=== PATIENT | female | born 1960 | race Caucasian/White ===

== ENCOUNTER → 2016-09-24 | Outpatient (CLI) | payer BC ==
[~2016-09-24] MED LIST: META1TAB22; OXYC-57
[2016-09-24 17:47] LABS: URINE APPEARANCE CLEAR (CLEAR); URINE BILIRUBIN NEG (NEG); URINE COLOR YELLOW; URINE EPITHELIAL CELL AUTO 0-5 /lpf (0-5); URINE NITRITE NEG (NEG); UROBILINOGEN NEG (NEG)
[2016-09-24 17:52] LABS: MANUAL MICROSCOPIC REQUIRED? NO; REVIEW REQ? NO
--- NOTE | 2016-09-24 17:59 | DIAGNOSTIC IMAGING REPORT ---
LEFT HAND MIN 3 VIEWS ROUTINE, RIGHT HAND MIN 3 VIEWS ROUTINE CLINICAL HISTORY: Bilateral hand pain. COMPARISON STUDY: None. FINDINGS: No fracture or dislocation within the right or left hand. Soft tissues are unremarkable. There is diffuse osteopenia. Mild cartilage space narrowing within the DIP joints, STT joint, first carpometacarpal joints, first MCP joints, and the interphalangeal joints within the thumbs. This is consistent with mild osteoarthritis. No erosions identified. IMPRESSION: 1. Mild osteoarthritis within the bilateral hands and wrists. 2. Diffuse osteopenia. This can be confirmed with follow-up DEXA scan. Electronically signed by: Jared Oliva M.D. 09/24/2016 5:57 PM Dictated Date/Time: 09/24/2016 5:54 PM
[2016-09-24 18:11] LABS: RHEUMATOID FACTOR < 10.0 U/mL (0-15); TOTAL IRON BINDING CAPACITY 401 mcg/dl (250-450)
[2016-10-02 02:35] LABS: ANTI-CENTROMERE AB <1.0 NEG AI (<1.0 NEG); ANTI-SS-A <1.0 NEG AI (<1.0 NEG); ANTI-SS-B <1.0 NEG AI (<1.0 NEG); DNA ds CRITHIDIA NEGATIVE (NEGATIVE); MYELOPEROXIDASE AB <1.0 AI (<1.0); Sm Antibody <1.0 NEG AI (<1.0 NEG); TRYPTASE**TC 34484X 17 ng/mL (<11)
[2016-10-02 14:08] LABS: CYCLIC CITRULLINATED PEPT IGG <16 Units
== END | disposition home or self-care (01) ==
LOC: C.RAD1850 16:34
PROVIDERS: ATTEND Internal Medicine Rheumatology
DX: L50.9 Urticaria, unspecified (principal); L94.4 Gottron's papules; M25.50 Pain in unspecified joint; R70.0 Elevated erythrocyte sedimentation rate; R76.8 Other specified abnormal immunological findings in serum; M85.849 Other specified disorders of bone density and structure, unspecified hand

== ENCOUNTER → 2016-11-21 | Outpatient (CLI) | payer BC ==
[2016-11-21 10:43] LABS: BASO % 0.1 %; BASO ABS # 0.02 K/uL (0-0.2); COMPLETE YES; EOS % 0.2 %; HEMATOCRIT 39.2 % (37-47); IG% 0.2 %; LYMPH % 15.5 %; LYMPH ABS # 2.72 K/uL (1.2-3.4); MEAN CELL VOLUME 85.6 fL (80-100); MEAN CORPUSCULAR HEMOGLOBIN 26.9 pg (25-34); MEAN CORPUSCULAR HGB CONC 31.4 g/dl (32-36); MEAN PLATELET VOLUME 9.4 fL (7.4-10.4); MONO % 4.7 %; NEUT % 79.3 %; PLATELET COUNT 254 K/uL (130-400); RED BLOOD COUNT 4.58 M/uL (4.2-5.4); WHITE BLOOD COUNT 17.59 K/uL (4.8-10.8)
[2016-11-21 11:33] LABS: ALB/GLOB RATIO 0.9 (0.9-2); ALT/SGPT 21 U/L (12-78); AST/SGOT 15 U/L (15-37); BLOOD UREA NITROGEN 18 mg/dl (7-18); BUN/CREATININE RATIO 24.5 (10-20); CALCIUM 8.8 mg/dl (8.5-10.1); CARBON DIOXIDE 30 mmol/L (21-32); CHLORIDE 105 mmol/L (98-107); CREATININE 0.75 mg/dl (0.60-1.20); GLUCOSE 96 mg/dl (70-99); POTASSIUM 3.6 mmol/L (3.5-5.1); SODIUM 142 mmol/L (136-145)
[2016-11-21 11:39] LABS: ALKALINE PHOSPHATASE 87 U/L (45-117)
[2016-11-25 08:50] LABS: HEPATITIS C VIRAL RNA BY PCR <15 NOT DETECTED IU/ML (<15); HEPATITIS C VIRAL RNA(LOG) PCR <1.18 NOT DETECTED LOG IU/ML (<1.18)
[2016-11-26 23:03] LABS: C1 ESTERASE INHIB FUNC >100 % (>=68); C1 ESTERASE INHIB TC298 36 mg/dL (21-39); IGE RECEPTOR AB(ANTI-IgE IgG)* 26 ng/mL (<168)
== END ==
LOC: C.LAB1850 09:45
PROVIDERS: ATTEND Dermatology
DX: R76.8 Other specified abnormal immunological findings in serum (principal); R74.8 Abnormal levels of other serum enzymes; L50.1 Idiopathic urticaria

== ENCOUNTER → 2016-11-26 | Outpatient (CLI) | payer BC ==
[~2016-11-26] MED LIST changes: +OPTIRAY 320 IV PRN
--- NOTE | 2016-11-26 12:34 | DIAGNOSTIC IMAGING REPORT ---
ABDOMEN AND PELVIS CT WITH IV AND ORAL CONTRAST CT DOSE: 753.06 mGy.cm HISTORY: R76.8 HARPER [id number] PR3 ANCA antibodies [id number] Chronic TECHNIQUE: Multiaxial CT images of the abdomen and pelvis were performed following the use of intravenous and oral contrast. COMPARISON STUDY: None. FINDINGS: Lung bases are clear. Liver enhances uniformly. Gallbladder is negative for distention. The adrenal glands and spleen are unremarkable. Kidneys enhance uniformly. There are several shotty para-aortic and retroperitoneal nodes. Para-aortic nodes measure to 6.5 mm. Bulky adenopathy is not appreciated. The bowel pattern is considered nonobstructive. Several pelvic sidewall nodes are present measuring to 1.3 cm on the right and 1.3 cm on the left. Bladder is midline. There are no contained calcifications. The middle region show several small nodes measuring no more than 5 mm. IMPRESSION: 1. Several small shotty nodes of the para-aortic and pelvic sidewall regions. 2. Evaluation of the abdomen and pelvis is otherwise negative. Electronically signed by: Josias Sharma M.D. 11/26/2016 12:33 PM Dictated Date/Time: 11/26/2016 12:29 PM
== END | disposition home or self-care (01) ==
LOC: C.CTS 12:02
PROVIDERS: ATTEND Internal Medicine Pulmonary Disease
DX: L50.1 Idiopathic urticaria (principal); R76.8 Other specified abnormal immunological findings in serum

== ENCOUNTER → 2016-12-26 | Outpatient (CLI) | payer BC ==
[~2016-12-26] MED LIST changes: -OPTIRAY 320 IV PRN
[2016-12-26 14:35] LABS: BASO % 0.2 %; BASO ABS # 0.02 K/uL (0-0.2); COMPLETE YES; EOS % 0.8 %; IG% 0.4 %; LYMPH % 22.8 %; LYMPH ABS # 2.15 K/uL (1.2-3.4); MEAN CELL VOLUME 83.7 fL (80-100); MEAN CORPUSCULAR HEMOGLOBIN 25.5 pg (25-34); MEAN CORPUSCULAR HGB CONC 30.5 g/dl (32-36); MEAN PLATELET VOLUME 9.6 fL (7.4-10.4); MONO % 3.3 %; NEUT % 72.5 %; PLATELET COUNT 258 K/uL (130-400); RED BLOOD COUNT 4.66 M/uL (4.2-5.4); WHITE BLOOD COUNT 9.45 K/uL (4.8-10.8)
[2016-12-26 14:50] LABS: ALT/SGPT 23 U/L (12-78); AST/SGOT 11 U/L (15-37); CREATININE 0.64 mg/dl (0.60-1.20)
== END | disposition home or self-care (01) ==
LOC: C.LAB1850 12:20
PROVIDERS: ATTEND Internal Medicine Rheumatology
DX: R76.8 Other specified abnormal immunological findings in serum (principal); L50.1 Idiopathic urticaria

== ENCOUNTER → 2017-04-23 | Outpatient (CLI) | payer BC ==
[2017-04-23 16:40] LABS: BASO % 0.1 %; BASO ABS # 0.01 K/uL (0-0.2); COMPLETE YES; EOS % 0.2 %; IG% 0.3 %; LYMPH ABS # 2.68 K/uL (1.2-3.4); MEAN CELL VOLUME 83.9 fL (80-100); MEAN CORPUSCULAR HEMOGLOBIN 24.9 pg (25-34); MEAN CORPUSCULAR HGB CONC 29.7 g/dl (32-36); MEAN PLATELET VOLUME 9.4 fL (7.4-10.4); MONO % 4.7 %; NEUT % 73.7 %; PLATELET COUNT 229 K/uL (130-400); RED BLOOD COUNT 4.53 M/uL (4.2-5.4); WHITE BLOOD COUNT 12.76 K/uL (4.8-10.8)
[2017-04-23 16:59] LABS: ALT/SGPT 24 U/L (12-78); AST/SGOT 10 U/L (15-37); CREATININE 0.72 mg/dl (0.60-1.20)
[2017-04-23 17:02] LABS: ALKALINE PHOSPHATASE 74 U/L (45-117)
== END | disposition home or self-care (01) ==
LOC: C.LAB1850 15:40
PROVIDERS: ATTEND Internal Medicine Rheumatology
DX: R76.8 Other specified abnormal immunological findings in serum (principal); M31.8 Other specified necrotizing vasculopathies

== ENCOUNTER → 2017-08-08 | Outpatient (CLI) | payer BC ==
[2017-08-08 17:41] LABS: BASO % 0.1 %; BASO ABS # 0.01 K/uL (0-0.2); EOS % 0.2 %; EOS ABS # 0.02 K/uL (0-0.5); HEMATOCRIT 35.6 % (37-47); HEMOGLOBIN 10.8 g/dL (12.0-16.0); IG# 0.03 K/uL (0.00-0.02); LYMPH % 15.7 %; LYMPH ABS # 1.74 K/uL (1.2-3.4); MEAN CELL VOLUME 86.2 fL (80-100); MEAN CORPUSCULAR HEMOGLOBIN 26.2 pg (25-34); MEAN CORPUSCULAR HGB CONC 30.3 g/dl (32-36); MEAN PLATELET VOLUME 9.7 fL (7.4-10.4); MONO % 3.2 %; MONO ABS # 0.36 K/uL (0.11-0.59); NEUT % 80.5 %; NEUT ABS # 8.93 K/uL (1.4-6.5); PLATELET COUNT 212 K/uL (130-400); RED CELL DISTRIBUTION WIDTH CV 18.8 % (11.5-14.5); WHITE BLOOD COUNT 11.09 K/uL (4.8-10.8)
[2017-08-08 17:59] LABS: ALBUMIN 3.2 gm/dl (3.4-5.0); ALT/SGPT 33 U/L (12-78); AST/SGOT 25 U/L (15-37); CREATININE 0.71 mg/dl (0.60-1.20)
[2017-08-08 18:02] LABS: ALKALINE PHOSPHATASE 91 U/L (45-117); TOTAL PROTEIN 6.8 gm/dl (6.4-8.2)
== END | disposition home or self-care (01) ==
LOC: C.LABMFLN 12:01
PROVIDERS: ATTEND Internal Medicine Rheumatology
DX: Z79.899 Other long term (current) drug therapy (principal)

== ENCOUNTER → 2017-09-11 | Outpatient (CLI) | payer BC ==
[2017-09-11 17:55] LABS: BASO % 0.1 %; BASO ABS # 0.01 K/uL (0-0.2); EOS % 0.2 %; EOS ABS # 0.02 K/uL (0-0.5); HEMATOCRIT 37.2 % (37-47); HEMOGLOBIN 11.4 g/dL (12.0-16.0); IG# 0.02 K/uL (0.00-0.02); LYMPH % 13.8 %; LYMPH ABS # 1.56 K/uL (1.2-3.4); MEAN CELL VOLUME 87.7 fL (80-100); MEAN CORPUSCULAR HEMOGLOBIN 26.9 pg (25-34); MEAN CORPUSCULAR HGB CONC 30.6 g/dl (32-36); MEAN PLATELET VOLUME 9.9 fL (7.4-10.4); MONO % 2.3 %; MONO ABS # 0.26 K/uL (0.11-0.59); NEUT % 83.4 %; NEUT ABS # 9.44 K/uL (1.4-6.5); PLATELET COUNT 242 K/uL (130-400); RED CELL DISTRIBUTION WIDTH CV 18.2 % (11.5-14.5); RED CELL DISTRIBUTION WIDTH SD 58.9 fL (36.4-46.3); WHITE BLOOD COUNT 11.31 K/uL (4.8-10.8)
[2017-09-11 18:10] LABS: ALBUMIN 3.5 gm/dl (3.4-5.0); ALT/SGPT 24 U/L (12-78); CREATININE 0.69 mg/dl (0.60-1.20)
[2017-09-11 18:13] LABS: ALKALINE PHOSPHATASE 96 U/L (45-117); AST/SGOT 17 U/L (15-37); TOTAL PROTEIN 6.9 gm/dl (6.4-8.2)
== END | disposition home or self-care (01) ==
LOC: C.LABMFLN 13:28
PROVIDERS: ATTEND Internal Medicine Rheumatology
DX: L50.1 Idiopathic urticaria (principal); Z79.52 Long term (current) use of systemic steroids; Z79.899 Other long term (current) drug therapy

== ENCOUNTER → 2018-01-06 | Outpatient (CLI) | payer BC | END | disposition home or self-care (01) | LOC: C.PAPS 08:46 | PROVIDERS: ATTEND Family Medicine | DX: Z01.419 Encounter for gynecological examination (general) (routine) without abnormal findings (principal) ==

== ENCOUNTER → 2018-01-06 | Outpatient (CLI) | payer BC ==
[2018-01-06 17:59] LABS: BASO % 0.2 %; BASO ABS # 0.02 K/uL (0-0.2); EOS % 0.1 %; EOS ABS # 0.01 K/uL (0-0.5); HEMATOCRIT 35.8 % (37-47); HEMOGLOBIN 11.3 g/dL (12.0-16.0); IG# 0.02 K/uL (0.00-0.02); LYMPH % 16.5 %; LYMPH ABS # 1.35 K/uL (1.2-3.4); MEAN CELL VOLUME 96.2 fL (80-100); MEAN CORPUSCULAR HEMOGLOBIN 30.4 pg (25-34); MEAN CORPUSCULAR HGB CONC 31.6 g/dl (32-36); MEAN PLATELET VOLUME 9.7 fL (7.4-10.4); MONO % 3.4 %; MONO ABS # 0.28 K/uL (0.11-0.59); NEUT % 79.6 %; NEUT ABS # 6.48 K/uL (1.4-6.5); PLATELET COUNT 249 K/uL (130-400); RED CELL DISTRIBUTION WIDTH CV 19.7 % (11.5-14.5); RED CELL DISTRIBUTION WIDTH SD 69.4 fL (36.4-46.3); WHITE BLOOD COUNT 8.16 K/uL (4.8-10.8)
[2018-01-06 18:13] LABS: ALBUMIN 3.3 gm/dl (3.4-5.0); BLOOD UREA NITROGEN 11 mg/dl (7-18); CALCIUM 9.1 mg/dl (8.5-10.1); CARBON DIOXIDE 27 mmol/L (21-32); CREATININE 0.66 mg/dl (0.60-1.20); GLUCOSE 115 mg/dl (70-99); POTASSIUM 4.2 mmol/L (3.5-5.1); SODIUM 140 mmol/L (136-145); TRANSFERRIN 284 mg/dl (200-360)
== END | disposition home or self-care (01) ==
LOC: C.LABMFLN 14:07
PROVIDERS: ATTEND Family Medicine
DX: Z98.84 Bariatric surgery status (principal); E55.9 Vitamin D deficiency, unspecified

== ENCOUNTER 2025-02-07 15:06 | Inpatient (IN) ==
[2025-02-07 16:10] LABS: Hematocrit (blood only) 39.2 % (37.0-47.0); Hemoglobin 12.0 g/dl (12.0-16.0); Immature Granulocytes # (auto) 0.05 K/uL (0.01-0.20); Immature Granulocytes % (auto) 0.4 %; Mean Corpuscular Hemoglobin 29.5 pg (25.0-34.0); Mean Corpuscular Volume 96.3 fL (80.0-100.0); Platelet Count 197 K/uL (130-400); RDW Standard Deviation 57.4 fL (36.4-46.3); Red Blood Count 4.07 M/uL (4.20-5.40); White Blood Count 13.04 K/ul (4.8-10.8)
[2025-02-07 16:26] LABS: Alanine Aminotransferase 15 U/L (7-52); Albumin Globulin Ratio 1.3 (0.9-2); Alkaline Phosphatase 80 U/L (34-104); Anion Gap 7 (3-11); Bilirubin,Total 0.7 mg/dl (0.2-1.0); Blood Urea Nitrogen 18 mg/dl (6-23); Calcium 9.5 mg/dl (8.6-10.3); Carbon Dioxide 27 mmol/L (21-32); Chloride 104 mmol/L (98-107); Globulin 3.0 gm/dl (2.5-4.0); Glucose 209 mg/dl (70-99(Fasting)); Potassium 4.2 mmol/L (3.5-5.1); Sodium 138 mmol/L (136-145); Total Protein 6.9 gm/dl (6.0-8.3)
[2025-02-07 16:44] LABS: INR 0.9 (0.9-1.1); Partial Thromboplastin Time 23 Seconds (21-31); Prothrombin Time 10.0 Seconds (9.0-12.0)
--- NOTE | 2025-02-07 17:25 | Emergency Department Note ---
ED Provider Note History of Present Illness Chief Complaint: Neck Injury/Pain Stated Complaint: NECK AND BACK PAIN, NO FEELING IN R ARM STARTING L Time Seen by Provider: 02/07/25 16:40 64-year-old female who presents the emergency department with her with multiple complaints. The patient reports a history of lupus that was diagnosed 10 years ago. She has also had 3 prior neck surgeries performed by Dr. Erickson. The patient reports that she has had progressively worsening pain in her neck and back, as well as tingling, numbness and weakness in bilateral upper extremities, left worse than right. The patient reports that she recently had an MRI, and was seen by Dr. Erickson's physician nurses assistant. The patient believes that she is scheduled for surgery in approximately 3 weeks, but is uncertain of the date. The patient denies any other recent injuries to her head or neck. The patient denies any profound weakness of the lower extremities, bladder/bowel incontinence, chest pain, shortness of breath or fevers. The patient reports that she is currently on chronic steroids for her lupus. The patient reports that her pain is manageable, currently rating her discomfort a 4 out of 10. Home Medications Medication Instructions Recorded Confirmed Type cetirizine 10 mg tablet 10 mg PO QAM 12/06/19 02/01/25 History fluticasone propionate 50 2 sprays intranasal HS 12/06/19 02/01/25 History mcg/actuation nasal spray,suspension multivitamin 1 tab PO QPM 12/06/19 02/01/25 History epinephrine 0.3 mg/0.3 mL 0.3 mg (0.3 mL) IM Q10M PRN 11/05/22 02/01/25 Rx injection, auto-injector (EpiPen anaphylaxis #2 ea 2-Brandon) albuterol sulfate 90 mcg/actuation 2 puff inhalation Q6H PRN 06/23/23 02/01/25 Rx aerosol inhaler shortness of breath or wheezing #18 grams CPAP Machine #1 ea 11/07/23 11/04/24 Rx CPAP Supplies #1 ea 11/07/23 11/04/24 Rx furosemide 20 mg tablet (Lasix) 20 mg PO DAILY PRN leg swelling 01/06/24 02/01/25 History fluticasone furoate 100 1 inh inhalation QAM #60 ea 01/19/24 02/01/25 Rx mcg-vilanterol 25 mcg/dose inhalation powder (Breo Ellipta) syringe with needle 3 mL 25 x 5/8" #100 ea 01/19/24 11/04/24 Rx (BD Luer-Vee Syringe) azelastine 137 mcg (0.1 %) nasal 2 spray intranasal BID PRN 04/21/24 02/01/25 Rx spray Congestion #30 mL montelukast 10 mg tablet See Rx Instructions .Route 05/04/24 02/01/25 Rx .COMPLEX #90 tabs methocarbamol 500 mg tablet 500 mg PO QID PRN cervical disc 05/18/24 02/01/25 Rx disease #120 tabs prednisone 10 mg tablet See Rx Instructions .Route 10/18/24 02/01/25 Rx .COMPLEX #60 tabs dapsone 100 mg tablet See Rx Instructions .Route 10/22/24 02/01/25 Rx .COMPLEX #90 tabs gabapentin 100 mg capsule 100 mg PO .COMPLEX #90 caps 11/04/24 02/01/25 Rx iron infusion 1 dose IV UD 11/04/24 02/01/25 History cholecalciferol (vitamin D3) 25 100 mcg PO QAM 11/12/24 02/01/25 History mcg/drop (1,000 unit/drop) oral drops famotidine 40 mg tablet 40 mg PO QAM #90 tabs 11/15/24 02/01/25 Rx cyanocobalamin (vitamin B-12) 1,000 mcg IM MONTHLY #1 mL 01/21/25 02/01/25 Rx 1,000 mcg/mL injection solution levothyroxine 25 mcg tablet 25 mcg PO QAM 02/01/25 02/01/25 History (Synthroid) clonazepam 0.5 mg tablet 0.5 mg PO TID #90 tabs 02/07/25 Rx hydrocodone 10 mg-acetaminophen 1 tab PO Q6H #120 tabs 02/07/25 Rx 325 mg tablet Allergies Allergy/AdvReac Type Severity Reaction Status Date / Time cefaclor Allergy Severe Dyspnea, Verified 02/01/25 12:31 redness cephalexin [From Keflex] Allergy Intermediate Pruritus, Verified 02/01/25 12:31 redness Cephalosporins Allergy Intermediate Pruritus Verified 02/01/25 12:31 (Keflex), Dyspnea (Cefaclor) latex Allergy Intermediate Contact Verified 02/07/25 10:15 dermatitis metoclopramide Allergy Intermediate Tachycardia Verified 02/01/25 12:31 nickel Allergy Contact Verified 02/07/25 10:15 dermatitis pravastatin AdvReac Intermediate Unverified 02/01/25 12:31 Past Med/Surg History Problem List (Updated 02/07/25 @ 19:44 by Rajeev Parks) Lupus (systemic lupus erythematosus) (Acute) Osteoporosis Cervical cord compression with myelopathy (Acute) Post-menopause Cervical radiculopathy Iron deficiency Vitamin B12 deficiency Duodenal ulcer Hiatal hernia Repaired with gastric bypass Depression 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) Left breast mass (Chronic) "benign" biopsy Intussusception, acquired (Chronic) hx of Chronic lower back pain (Chronic) Cervical disc disease (Chronic) Axillary adenopathy (Chronic) Arthritis (Chronic) Anxiety (Chronic) Anemia (Chronic) Allergic rhinitis (Chronic) HARPER positive (Chronic) Medical History Chronic sinusitis Tobacco abuse Pt states was told that she needs to stop smoking prior to surgery so she has been trying to cut back but still occasional cigarette Obesity s/p gastric bypass surgery Mast cell activation syndrome Anxiety and depression Cervical disc disease Multiple previous c-spine surgeries; currently c/o severe radicular sx; states R hand completely numb, RUE with significant numbness/tingling, LUE and B/L LE affected also Anemia Iron deficiency- occasionally receives iron infusions B12 deficiency- receives monthy injections Sleep apnea Has not been using CPAP since having teeth pulled 10/2024 History of COVID-19 2020 + 2021 (home test)- mild symptoms > resolved, no current symptoms Asthma with COPD GERD (gastroesophageal reflux disease) Hx Lupus (systemic lupus erythematosus) Dx ~[address] Guadalupe "Affects joints"; takes prednisone daily Chronic idiopathic urticaria Surgical History History of postoperative nausea and vomiting Status post blepharoplasty of both eyes Per records Hx of bilateral cataract extraction Hx of cardiac catheterization 12/2022 (family hx CAD + coronary calcifications on CT chest), [facility]- no stents, mild non-obstructive disease Epidermal cyst In office procedure (08/2022) Skin, right back cyst, excision- Epidermoid cyst History of colonoscopy History of esophagogastroduodenoscopy (EGD) History of endoscopic sinus surgery [facility], Dr. Arellano Nausea and vomiting after administration of anesthetic agent History of tubal ligation History of tonsillectomy and adenoidectomy History of sinus surgery History of shoulder surgery Left x2 History of neck surgery x3 (including fusion) History of mastoidectomy Left H/O arthroscopic knee surgery History of gastric bypass 2000 with repair of hiatal hernia History of cholecystectomy History of ankle surgery S/P LETHA (total abdominal hysterectomy) Family History Sister Anxiety Breast cancer Mother Diabetes Colorectal cancer Cancer Stroke Father Diabetes Hypertension Hearing loss Stroke Heart disease Other No family history of adverse response to anesthesia Denies family history of Ovarian cancer Prostate cancer Myocardial infarction Asthma Social History Smoking Status: Current some day smoker Tobacco Type: Cigarettes Age Started Using Tobacco: 16; packs per day: 0.5; Cigarettes Per Day: 1-10; Second Hand Exposure: No; Do You Dip or Chew Tobacco: No; Hx Alcohol Use: No Hx Substance Use: No Preferred Language: Luxembourgish Communication Ability: Effective Visual Impairment: Limited Hearing Ability: Normal Community Specialist Required: No Beliefs That Will Affect Care: None marital status: Current Living Situation: Spouse current occupational status: employed current occupation: "filing for " How many Children do You have: 2 Other Information That Helps Us Care for You: No Feels Safe at Home: Yes Safety Concerns: Feels Safe At This Time Childhood Exposure to Second-Hand Smoke: No Diet: regular during the past year weight has: increased > 10 lbs Dental Care, Regularly: Yes Physical Activity Frequency: 1-2 Times per Week Physical Activity Frequency Comment: Exercised limited by physical condition Seatbelt Use: always Sunscreen Use: Yes Do you think of yourself as: straight/heterosexual Assistive Devices: None Physical Exam Vital Signs Vital Signs - 24 hr 02/07/25 15:10 02/07/25 16:31 02/07/25 16:53 Temperature 36.6 C Temperature Source Temporal Artery Scan Pulse Rate 72 55 L Pulse Rate [Right Finger] 60 Pulse Rate from SpO2 Sensor Pulse Rhythm [Right Finger] Regular Pulse Strength [Right Finger] Normal Respiratory Rate 20 20 Respiratory Effort / Characteristics Non-Labored Non-Labored Spontaneous Respiratory Depth Normal Normal Respiratory Pattern Regular Blood Pressure 153/75 H Blood Pressure [Right Arm] 197/78 H Blood Pressure Mean 101 Blood Pressure Mean [Right Arm] 117 Blood Pressure Position [Right Arm] Sitting Pulse Oximetry 92 94 Oxygen Delivery Method Room Air Room Air Oxygen Flow Rate Sepsis Recent Fever Within 48 Hours No Sepsis New/Unexplained Change in Mental Status No Sepsis Action Taken by Nursing No Action Required Oxygen Flow Rate - Titration Pulse Oximetry Post Tiitration 02/07/25 17:01 02/07/25 17:30 02/07/25 18:00 Temperature Temperature Source Pulse Rate 58 L 52 L 54 L Pulse Rate [Right Finger] Pulse Rate from SpO2 Sensor 52 L 54 L Pulse Rhythm [Right Finger] Pulse Strength [Right Finger] Respiratory Rate 16 17 18 Respiratory Effort / Characteristics Respiratory Depth Respiratory Pattern Blood Pressure 198/107 H 170/73 H 177/78 H Blood Pressure [Right Arm] Blood Pressure Mean 162 105 111 Blood Pressure Mean [Right Arm] Blood Pressure Position [Right Arm] Pulse Oximetry 91 93 91 Oxygen Delivery Method Oxygen Flow Rate Sepsis Recent Fever Within 48 Hours Sepsis New/Unexplained Change in Mental Status Sepsis Action Taken by Nursing Oxygen Flow Rate - Titration Pulse Oximetry Post Tiitration 02/07/25 18:03 02/07/25 18:30 02/07/25 18:48 Temperature Temperature Source Pulse Rate 53 L Pulse Rate [Right Finger] 52 L Pulse Rate from SpO2 Sensor 54 L Pulse Rhythm [Right Finger] Pulse Strength [Right Finger] Respiratory Rate 12 12 Respiratory Effort / Characteristics Respiratory Depth Respiratory Pattern Blood Pressure 161/83 H Blood Pressure [Right Arm] 161/83 H Blood Pressure Mean 109 Blood Pressure Mean [Right Arm] 109 Blood Pressure Position [Right Arm] Pulse Oximetry 85 L 94 94 Oxygen Delivery Method Nasal Cannula Oxygen Flow Rate 0 Sepsis Recent Fever Within 48 Hours Sepsis New/Unexplained Change in Mental Status Sepsis Action Taken by Nursing Oxygen Flow Rate - Titration 2 Pulse Oximetry Post Tiitration 93 CONSTITUTIONAL: Healthy and well nourished. Alert and oriented X 3. GCS 15. Patient does not appear in any acute distress. HEENT: Normocephalic, atraumatic. Pupils equal, round and reactive. NECK: Patient has limited range of motion of the neck. No obvious nuchal rigidity. LYMPHATICS: No cervical chain adenopathy. RESPIRATORY: Clear to auscultation bilaterally with no wheezing, crackles, rhonchi or stridor. CARDIOVASCULAR: Regular rate and rhythm with no murmurs, rubs or gallops. GASTROINTESTINAL: Bowel sounds present in all quadrants. MUSCULOSKELETAL: Patient has gear cutter strength of 3 out of 5 on the right, 4 out of 5 on the left. Patient has mild generalized tenderness to palpation of the lower lumbar region as well with negative straight leg raise bilaterally. Distal pulses are intact. INTEGUMENTARY: No rash or other significant dermatologic conditions noted. HEMATOLOGIC: No ecchymosis or petechiae. PSYCHIATRIC: Positive affect. NEUROLOGIC: Upper and lower extremities are sensory intact. Course Course Patient history and physical exam were performed. Nursing notes were reviewed. Vital signs reviewed and are normal. IV access was established, and labs were ordered and drawn. Review of labs does show a mild leukocytosis, with history of the same, likely secondary to chronic steroid use. Coagulation studies and CMP were otherwise grossly normal other than an elevated glucose of 209. Troponin was also normal. I did review the patient's outside MRI that was performed on 12/09/2024, performed at [facility]. MRI report shows progressive thecal sac stenosis at C3-4 level from posterior disc osteophyte complex with impingement on the cervical cord. There is development of T2 hyperintensity in the cord at this level which may reflect edema or gliosis. Postsurgical changes of an anterior fusion from C4-C7 is also noted. At this point, I did explain to the patient that her symptoms are likely secondary to worsening compression on her spinal cord. At this point, I did recommend reaching out to Dr. Erickson (although he was not on-call) to see if he had any other further recommendations given the patient's worsening state. Dr. Erickson did indicate that he would admit the patient for surgical admission, and will consult the hospitalist service for presurgical clearance. He did request that I repeat the MRI for presurgical planning. This was ordered and was pending at the time of chart dictation. I did add an additional chest x-ray and ECG for preoperative planning, showing a sinus bradycardia 53 bpm with incomplete right bundle branch block. Portable chest x-ray was also nonconcerning. Please see Dr. Erickson's dictation for further treatment and final disposition. Administered Medications Hydromorphone HCl (Hydromorphone Inj 0.5 Mg/0.5 Ml Syr) 0.5 mg IV Q3H PRN PRN Reason: MOD pain (scale 4-6) & Pre PT Stop: 02/21/25 21:33 Last Admin: 02/07/25 21:53 Dose: 0.5 mg Documented By: KAREN Discontinued Medications Dexamethasone Sodium Phosphate (DexamethasonePf 10 Mg/Ml Vial) 10 mg IV NOW ONE Stop: 02/07/25 17:28 Last Admin: 02/07/25 17:58 Dose: 10 mg Documented By: JUAN ALBERTO Medical Decision Making Medical Records Attestation: I reviewed the patient's medical records. Home Medications was personally reviewed by me Laboratory Data Attestation: I reviewed the patient's lab results. 02/07/25 15:55 02/07/25 15:55 Lab Results 02/07/25 Range/Units 15:55 WBC 13.04 H (4.8-10.8) K/ul RBC 4.07 L (4.20-5.40) M/uL Hgb 12.0 (12.0-16.0) g/dl Hct 39.2 (37.0-47.0) % MCV 96.3 (80.0-100.0) fL MCH 29.5 (25.0-34.0) pg MCHC 30.6 L (32.0-36.0) g/dL RDW Std Deviation 57.4 H (36.4-46.3) fL RDW Coeff of Ajay 16.2 H (11.5-14.5) % Plt Count 197 (130-400) K/uL MPV 10.1 (9.4-12.4) fL Immature Gran % (Auto) 0.4 % Neut % (Auto) 71.1 % Lymph % (Auto) 24.2 % Conway % (Auto) 4.0 % Eos % (Auto) 0.1 % Baso % (Auto) 0.2 % Neut # (Auto) 9.27 H (1.40-6.50) K/uL Lymph # (Auto) 3.16 (1.20-3.40) K/uL Conway # (Auto) 0.52 (0.11-0.59) K/uL Eos # (Auto) 0.01 (0.00-0.50) K/uL Baso # (Auto) 0.03 (0.00-0.20) K/uL Immature Gran # (Auto) 0.05 (0.01-0.20) K/uL PT 10.0 (9.0-12.0) Seconds INR 0.9 (0.9-1.1) APTT 23 (21-31) Seconds PTT Ratio 0.9 Sodium 138 (136-145) mmol/L Potassium 4.2 (3.5-5.1) mmol/L Chloride 104 (98-107) mmol/L Carbon Dioxide 27 (21-32) mmol/L Anion Gap 7 (3-11) BUN 18 (6-23) mg/dl Creatinine 0.64 (0.6-1.2) mg/dl Est Cr Clr Drug Dosing Not Reportable eGFR 98.62 BUN/Creatinine Ratio 28.1 H (10-20) Glucose 209 H (70-99(Fasting)) mg/dl Calcium 9.5 (8.6-10.3) mg/dl Total Bilirubin 0.7 (0.2-1.0) mg/dl AST 13 (13-39) U/L ALT 15 (7-52) U/L Alkaline Phosphatase 80 (34-104) U/L Troponin I High Sens 5.8 (0-14) pg/ml Total Protein 6.9 (6.0-8.3) gm/dl Albumin 3.9 (3.4-5.0) gm/dl Globulin 3.0 (2.5-4.0) gm/dl Albumin/Globulin Ratio 1.3 (0.9-2) Imaging Data Attestation: I personally reviewed and interpreted this imaging study as follows: My Impression: My interpretation of a portable chest x-ray does not show evidence for pulmonary edema, pneumothorax or pneumonia. Noncontrast MRI of the cervical spine was ordered at Dr. Erickson's request, and was not reviewed by me prior to chart documentation. Radiologist's Impression: Chest X-Ray 02/07/25 18:48 EXAM: X-ray chest one-view portable CLINICAL HISTORY: Pre-op PRIORS: None TECHNIQUE: AP upright chest FINDINGS: Surgical hardware at the cervical spine. The chest is well-expanded. Overlying soft tissues obscure the lung bases. No airspace consolidation, effusion or congestive changes. Heart size is top normal. No pneumothorax. Trachea is patent. Osseous structures demonstrate no acute abnormality. No radiopaque foreign body. IMPRESSION: No plain film evidence of an acute cardiopulmonary process. Electronically signed by Maxine Morris 02-07-2025 7:30 PM MDM Narrative See ED Course section for further details of today's visit. The patient presents with symptoms of progressively worsening pain, tingling and numbness of bilateral upper extremities, right worse than left, as well as lower extremity weakness as well. The patient has fallen several times recently. Patient does have an outpatient MRI showing notable compression on the cervical cord, likely explaining the patient's symptoms. The case was discussed with Dr. Erickson, spine surgeon, who indicated that the patient does warrant surgical management. Further review of the patient's workup today does not show any electrolyte abnormalities. Cardiopulmonary workup was also nonconcerning, both preoperatively as well as for etiology for her current symptoms. Please see Dr. Erickson's dictation for further treatment and final disposition. A noncontrast MRI of the cervical spine was ordered at Dr. Erickson's request, and was not reviewed by me prior to chart completion. Impression Cervical cord compression with myelopathy, Chronic lower back pain, Lupus (systemic lupus erythematosus) Discharge Plan Visit Data Chief Complaint: Neck Injury/Pain Stated Complaint: NECK AND BACK PAIN, NO FEELING IN R ARM STARTING L ED Provider: Zak Herrera ED Midlevel Provider: Rajeev Parks Discharge Problem: Cervical cord compression with myelopathy, Chronic lower back pain, Lupus (systemic lupus erythematosus) Patient Disposition: Admitted As Inpatient Condition: Fair Discharge Instructions Interventions: ED Discharge Assessment Last Done: 02/07/25 21:20 ED DC CONDITION Conditon at Discharge Condition at Discharge: Fair Discharge Problem: Chronic lower back pain Qualifiers: Back pain laterality: bilateral Sciatica presence: with sciatica Sciatica laterality: bilateral sciatica Qualified Code(s): M54.42 - Lumbago with sciatica, left side Lupus (systemic lupus erythematosus) Qualifiers: Systemic lupus erythematosus type: unspecified Systemic lupus erythematosus organ involvement: unspecified Qualified Code(s): M32.9 - Systemic lupus erythematosus, unspecified
[2025-02-07] MEDS: dexAMETHasone**PF** 10 MG/ML VIAL IV ONE (17:58)
--- NOTE | 2025-02-07 19:31 | XRay Report ---
EXAM: X-ray chest one-view portable CLINICAL HISTORY: Pre-op PRIORS: None TECHNIQUE: AP upright chest FINDINGS: Surgical hardware at the cervical spine. The chest is well-expanded. Overlying soft tissues obscure the lung bases. No airspace consolidation, effusion or congestive changes. Heart size is top normal. No pneumothorax. Trachea is patent. Osseous structures demonstrate no acute abnormality. No radiopaque foreign body. IMPRESSION: No plain film evidence of an acute cardiopulmonary process. Electronically signed by Maxine Morris 02-07-2025 7:30 PM
[2025-02-07] MEDS ORDERED: ACETAMINOPHEN 1,000 MG/100 ML VIAL IV PRN (21:34)
[2025-02-07] MEDS ORDERED: PROMETHAZINE 12.5 MG/50.5 ML BAG IV PRN (21:34)
[2025-02-07] MEDS ORDERED: ONDANSETRON INJ 2 MG/ML 2 ML VIAL IV PRN (21:34)
[2025-02-07] MEDS ORDERED: METOCLOPRAMIDE HCL INJ 5 MG/ML 2 ML VIAL IV PRN (21:34)
[2025-02-07] MEDS ORDERED: NON-FORMULARY MEDICATION (Cpap Machine misc) SCH (21:34)
[2025-02-07] MEDS ORDERED: NON-FORMULARY MEDICATION (Cpap Supplies misc) SCH (21:34)
[2025-02-07] MEDS ORDERED: NALOXONE HCL 0.4 MG/1 ML VIAL/CARP IV PRN (21:34)
[2025-02-07] MEDS ORDERED: CYANOCOBALAMIN 1000 MCG/ML VIAL IM SCH (21:34)
[2025-02-07] MEDS ORDERED: VANCOMYCIN CONSULT ACTIVE PRN (21:34)
[2025-02-07] MEDS ORDERED: ALBUTEROL HFA 8 GM INHALER INH PRN (21:34)
[2025-02-07] MEDS ORDERED: ONDANSETRON 4 MG OD TAB PO PRN (21:34)
[2025-02-07] MEDS ORDERED: HYDROmorphone INJ 1 MG/ML SYRINGE IV PRN (21:34)
[2025-02-07] MEDS: HYDROmorphone INJ 0.5 MG/0.5 ML SYR IV PRN (21:53)
--- NOTE | 2025-02-07 22:17 | Hospitalist Consultation ---
Date of Consultation February 07, 2025 Assessment & Plan (1) Lupus (systemic lupus erythematosus): (2) Cervical cord compression with myelopathy: (3) Cervical radiculopathy: (4) Aortic calcification: (5) Severe chronic obstructive pulmonary disease: Plan #Cervical pain/cervical radiculopathy/numbness and tingling - chronic w/ cervical pain, cervical radiculopathy, numbness/tingling of distal extremities (amrita r. distal fingers) - MRI --> Advanced disc degeneration at C3-4 with annular disc bulge flattening the ventral cord with cord edema and causing a critical spinal canal stenosis. There is severe bilateral neuroforaminal stenoses with impingement of the C4 nerve roots. Neurosurgical consult for decompression. - pt is NPO at midnight, slated for cervical decompression surgery tomorrow #Murmur ([place])/pedal edema - murmur heard at [place] concerning for aortic stenosis - pedal edema, +1 pitting edema, bilaterally - pt notes previous Echocardiogram obtained through [facility] "a few yrs ago" - will order TTE, Urgent, need it read before pt goes to surgery #Pre-op evaluation - Patient w/ RCRI score of 0, assuming that above murmur, pedal edema are not symptoms of CHF. - Cr, 0.64 - No past Dx of T2DM, no MD's/CAD, no strokes, no past Dx - Due to high glucose, 209 upon admission will order Insulin, SQ, for her with ACHS BSG checks Chronic conditions #Lupus, prednisone, 20 mg, PO, daily #GERD, continue famotidine, Flonase #idiopathic urticaria, continue montelukast #COPD, continue Breo Ellipta #hypothyroidism, continue levothyroxine #anxiety, continue Klonopin All of the patient's medications, including oral medications, were continued per the patient's primary admitting provider, the surgeon. Supervising Physician Co-Signing Physician Notes Attending addendum: I have physically seen this patient, have supervised the medical residents activities, and agree with the H&P unless as otherwise noted. Assessment and Plan: Cervical pain/cervical radiculopathy/right operatory numbness and tingling- Management per primary team Heart murmur, pedal edema- Most recent echocardiogram from 02/04/2023 noted ejection fraction approximately 60%. Mild tricuspid regurgitation present. Otherwise normal. Order echocardiogram to be done in a.m. On a functional basis, patient does not appear to be affected, but will ask for expedited evaluation of echocardiogram Hyperglycemia- Glucose 209 on admission Patient does not have a diagnosis of diabetes or prediabetes Likely secondary to chronic prednisone use Place on Accu-Cheks with NovoLog SSI Check hemoglobin A1c with next labs All other medications for chronic conditions have been ordered by primary team- Lupus-prednisone 20 mg p.o. daily. Follow closely for need for stress dosing GERD-continue famotidine and Flonase Idiopathic urticaria-continuing montelukast COPD-continue Breo Ellipta. Add DuoNebs every 2 hours as needed Hypothyroidism-continue levothyroxine Anxiety-continue clonazepam History of Present Illness Reason for Consultation: Patient is scheduled to have an orthopedic surgery with Dr. Erickson within the next few days. Attending Physician: Stewart Erickson, DO History of Present Illness Patient is a 64 yo F, w/ a PMHx of lupus, osteoporosis, depression, chronic GERD, esophageal dysmotility, aortic calcification, severe COPD, secondary hyperparathyroidism, intussusception, arthritis, anemia, anxiety who presents to the [facility] ER with her with multiple acute on chronic complaints. She has also had 3 prior neck surgeries, the last one performed by Dr. Erickson. One of those surgeries was a fusion from C4-C7. The patient reports that she has had progressively worsening pain in her neck and back, as well as tingling, numbness and weakness in bilateral upper extremities, right (dominant hand) much worse than the left. The pain is better when flexing the neck forward instead of extending the neck. The patient reports that she recently had an MRI, the results of which were documented in the note by the ER physician. Although the patient is scheduled for surgery in approximately 3 weeks, her pain is too intense to wait much longer. The patient denies any other recent injuries to her head/neck and denies any profound weakness of the lower extremities, bladder/bowel incontinence, chest pain, shortness of breath or fevers. The patient reports that she is currently on chronic steroids for her lupus. Patient's current pain is manageable, ~ 4/10, but after it flares up the pain is more like an 8/10. Patient denies any Dx of T2DM/insulin use, any past Hx of MD/CV disease, any past Hx of stroke, or any current Hx of CHF. Allergies Allergy/AdvReac Type Severity Reaction Status Date / Time cefaclor Allergy Severe Dyspnea, Verified 02/01/25 12:31 redness cephalexin [From Keflex] Allergy Intermediate Pruritus, Verified 02/01/25 12:31 redness Cephalosporins Allergy Intermediate Pruritus Verified 02/01/25 12:31 (Keflex), Dyspnea (Cefaclor) latex Allergy Intermediate Contact Verified 02/07/25 10:15 dermatitis metoclopramide Allergy Intermediate Tachycardia Verified 02/01/25 12:31 nickel Allergy Contact Verified 02/07/25 10:15 dermatitis pravastatin AdvReac Intermediate Unverified 02/01/25 12:31 Home Medications Medication Instructions Recorded Confirmed Type cetirizine 10 mg tablet 10 mg PO QAM 12/06/19 02/01/25 History fluticasone propionate 50 2 sprays intranasal HS 12/06/19 02/01/25 History mcg/actuation nasal spray,suspension multivitamin 1 tab PO QPM 12/06/19 02/01/25 History epinephrine 0.3 mg/0.3 mL 0.3 mg (0.3 mL) IM Q10M PRN 11/05/22 02/01/25 Rx injection, auto-injector (EpiPen anaphylaxis #2 ea 2-Brandon) albuterol sulfate 90 mcg/actuation 2 puff inhalation Q6H PRN 06/23/23 02/01/25 Rx aerosol inhaler shortness of breath or wheezing #18 grams CPAP Machine #1 ea 11/07/23 11/04/24 Rx CPAP Supplies #1 ea 11/07/23 11/04/24 Rx furosemide 20 mg tablet (Lasix) 20 mg PO DAILY PRN leg swelling 01/06/24 02/01/25 History fluticasone furoate 100 1 inh inhalation QAM #60 ea 01/19/24 02/01/25 Rx mcg-vilanterol 25 mcg/dose inhalation powder (Breo Ellipta) syringe with needle 3 mL 25 x 5/8" #100 ea 01/19/24 11/04/24 Rx (BD Luer-Vee Syringe) azelastine 137 mcg (0.1 %) nasal 2 spray intranasal BID PRN 04/21/24 02/01/25 Rx spray Congestion #30 mL montelukast 10 mg tablet See Rx Instructions .Route 05/04/24 02/01/25 Rx .COMPLEX #90 tabs methocarbamol 500 mg tablet 500 mg PO QID PRN cervical disc 05/18/24 02/01/25 Rx disease #120 tabs prednisone 10 mg tablet See Rx Instructions .Route 10/18/24 02/01/25 Rx .COMPLEX #60 tabs dapsone 100 mg tablet See Rx Instructions .Route 10/22/24 02/01/25 Rx .COMPLEX #90 tabs gabapentin 100 mg capsule 100 mg PO .COMPLEX #90 caps 11/04/24 02/01/25 Rx iron infusion 1 dose IV UD 11/04/24 02/01/25 History cholecalciferol (vitamin D3) 25 100 mcg PO QAM 11/12/24 02/01/25 History mcg/drop (1,000 unit/drop) oral drops famotidine 40 mg tablet 40 mg PO QAM #90 tabs 11/15/24 02/01/25 Rx cyanocobalamin (vitamin B-12) 1,000 mcg IM MONTHLY #1 mL 01/21/25 02/01/25 Rx 1,000 mcg/mL injection solution levothyroxine 25 mcg tablet 25 mcg PO QAM 02/01/25 02/01/25 History (Synthroid) clonazepam 0.5 mg tablet 0.5 mg PO TID #90 tabs 02/07/25 Rx hydrocodone 10 mg-acetaminophen 1 tab PO Q6H #120 tabs 02/07/25 Rx 325 mg tablet Patient History Medical History Chronic sinusitis Tobacco abuse Pt states was told that she needs to stop smoking prior to surgery so she has been trying to cut back but still occasional cigarette Obesity s/p gastric bypass surgery Mast cell activation syndrome Anxiety and depression Cervical disc disease Multiple previous c-spine surgeries; currently c/o severe radicular sx; states R hand completely numb, RUE with significant numbness/tingling, LUE and B/L LE affected also Anemia Iron deficiency- occasionally receives iron infusions B12 deficiency- receives monthy injections Sleep apnea Has not been using CPAP since having teeth pulled 10/2024 History of COVID-2020 + 2021 (home test)- mild symptoms > resolved, no current symptoms Asthma with COPD GERD (gastroesophageal reflux disease) Hx Lupus (systemic lupus erythematosus) Dx ~[address] Guadalupe "Affects joints"; takes prednisone daily Chronic idiopathic urticaria Surgical History History of postoperative nausea and vomiting Status post blepharoplasty of both eyes Per records Hx of bilateral cataract extraction Hx of cardiac catheterization 12/2022 (family hx CAD + coronary calcifications on CT chest), [facility]- no stents, mild non-obstructive disease Epidermal cyst In office procedure (08/2022) Skin, right back cyst, excision- Epidermoid cyst History of colonoscopy History of esophagogastroduodenoscopy (EGD) History of endoscopic sinus surgery [facility], Dr. Arellano Nausea and vomiting after administration of anesthetic agent History of tubal ligation History of tonsillectomy and adenoidectomy History of sinus surgery History of shoulder surgery Left x2 History of neck surgery x3 (including fusion) History of mastoidectomy Left H/O arthroscopic knee surgery History of gastric bypass 2000 with repair of hiatal hernia History of cholecystectomy History of ankle surgery S/P LETHA (total abdominal hysterectomy) Family History Sister Anxiety Breast cancer Mother Diabetes Colorectal cancer Cancer Stroke Father Diabetes Hypertension Hearing loss Stroke Heart disease Other No family history of adverse response to anesthesia Denies family history of Ovarian cancer Prostate cancer Myocardial infarction Asthma Social History Smoking Status: Current some day smoker Tobacco Type: Cigarettes Age Started Using Tobacco: 16; packs per day: 0.5; Cigarettes Per Day: 1-10; Second Hand Exposure: No; Do You Dip or Chew Tobacco: No; Hx Alcohol Use: No Hx Substance Use: No Preferred Language: Yoruba Communication Ability: Effective Visual Impairment: Limited Hearing Ability: Normal Furniture Servicer Required: No Beliefs That Will Affect Care: None marital status: Current Living Situation: Spouse current occupational status: employed current occupation: "filing for " How many Children do You have: 2 Other Information That Helps Us Care for You: No Feels Safe at Home: Yes Safety Concerns: Feels Safe At This Time Childhood Exposure to Second-Hand Smoke: No Diet: regular during the past year weight has: increased > 10 lbs Dental Care, Regularly: Yes Physical Activity Frequency: 1-2 Times per Week Physical Activity Frequency Comment: Exercised limited by physical condition Seatbelt Use: always Sunscreen Use: Yes Do you think of yourself as: straight/heterosexual Assistive Devices: None Review of Systems Review of Systems: All systems reviewed & are unremarkable except as noted in HPI & below Physical Exam Constitutional: WD/WN, vitals as above Respiratory: normal respiratory effort, lungs clear to auscultation Cardiovascular: Rate/Rhythm: regular rate and regular rhythm Heart Sounds: + murmur Extremities: normal capillary refill and + pedal edema (+1 pedal edema); no calf tenderness Gastrointestinal (Abdomen): normal bowel sounds, soft, nontender, no hepatosplenomegaly Psychiatric: A+Ox3, euthymic affect Results & Data Results & Data Vital Signs (Past 12 Hours) Vital Signs Temp Pulse Pulse Resp BP BP Pulse Ox 02/07/25 19:30 55 L 15 160/77 H 91 02/07/25 18:48 52 L 12 161/83 H 94 02/07/25 18:30 53 L 12 161/83 H 94 02/07/25 18:03 85 L 02/07/25 18:00 54 L 18 177/78 H 91 02/07/25 17:30 52 L 17 170/73 H 93 02/07/25 17:01 58 L 16 198/107 H 91 02/07/25 16:53 55 L 02/07/25 16:31 60 20 197/78 H 94 02/07/25 15:10 36.6 C 72 20 153/75 H 92 O2 Del Method O2 Flow Rate 02/07/25 19:30 Room Air 02/07/25 18:48 02/07/25 18:30 02/07/25 18:03 Nasal Cannula 0 02/07/25 18:00 02/07/25 17:30 02/07/25 17:01 02/07/25 16:53 02/07/25 16:31 Room Air 02/07/25 15:10 Room Air (1) Lupus (systemic lupus erythematosus) Systemic lupus erythematosus organ involvement: unspecified Systemic lupus erythematosus type: unspecified Qualified Code(s): M32.9 - Systemic lupus erythematosus, unspecified
[2025-02-07] MEDS: DAPSONE 25 MG TAB PO SCH (22:50)
[2025-02-07] MEDS: FLUTICASONE PROPIONATE NA SPR 16 GM BTL SCH (22:50)
[2025-02-07] MEDS: MULTIVITAMIN TAB PO SCH (22:51)
[2025-02-07] MEDS: clonazePAM 0.5 MG TAB PO SCH (22:53)
[2025-02-07] MEDS: MONTELUKAST SODIUM 10 MG TABLET PO SCH (22:53)
--- NOTE | 2025-02-07 23:07 | Magnetic Resonance Report ---
Exam(s): MRI C SPINE EXAM: MR Cervical Spine Without Intravenous Contrast CLINICAL HISTORY: Reason for exam: Bilat cervical radiculopathy, pre-op. TECHNIQUE: Magnetic resonance images of the cervical spine without intravenous contrast in multiple planes. COMPARISON: Prior CT scan of the cervical spine from October 14, 2007. FINDINGS: Vertebrae: There are 7 cervical type vertebral bodies with a mild generalized curved to the left and straightening normal cervical lordosis. There is a mild grade 1 anterolisthesis of C7 on T1 measuring 2 mm. Otherwise, there is normal vertebral body height and alignment. The bone marrow signal is heterogeneous with reactive endplate changes. No acute fracture. There is anterior fusion of C4-C7. Spinal cord: There is flattening the ventral cord at C3-4 with moderate cord edema. The craniocervical junction is normal without evidence of Chiari malformation. There is myelomalacia at C6-7. Soft tissues: The cervical flow voids are intact. DISCS/SPINAL CANAL/NEURAL FORAMINA: C2-C3: There is mild disc degeneration with annular disc bulge flattening the ventral thecal sac. C3-C4: Advanced disc degeneration with annular disc bulge flattening the ventral cord with cord edema and causing a critical spinal canal stenosis with AP diameter measuring 4.6 mm. There is uncovertebral joint arthropathy with disc extending to the neural foramina causing severe bilateral neuroforaminal stenosis. C4-C5: There is fusion across the segments without residual stenosis or impingement. C5-C6: There is fusion across these segments without residual stenosis or impingement. C6-C7: There is fusion across his segments without residual stenosis or impingement. C7-T1: The intervertebral disc is normal IMPRESSION: Advanced disc degeneration at C3-4 with annular disc bulge flattening the ventral cord with cord edema and causing a critical spinal canal stenosis. There is severe bilateral neuroforaminal stenoses with impingement of the C4 nerve roots., Neurosurgical consult for decompression. Communications: Verify Receipt Electronically signed by: Melany Stokes MD 02/07/25 23:06 PM
[2025-02-08] MEDS ORDERED: GLUCOSE 40% GEL 15 GM TUBE PO PRN (00:38)
[2025-02-08] MEDS ORDERED: GLUCOSE 10 TAB/TUBE PO PRN (00:38)
[2025-02-08] MEDS ORDERED: GLUCAGON FOR INJ 1 MG VIAL SQ PRN (00:38)
[2025-02-08] MEDS ORDERED: DEXTROSE 50% 50 ML SYRINGE IV PRN (00:38)
[2025-02-08] MEDS ORDERED: CARBOHYDRATES FOR HYPOGLYCEMIA PO PRN (00:38)
[2025-02-08] MEDS ORDERED: ALBUT/IPRATROP 3MG/0.5MG NEB 3 ML VIAL NEB PRN (02:31)
--- NOTE | 2025-02-08 02:34 | Billing Data ---
Date of Service February 08, 2025 Coding Level of Care Code 50253 IN/OBS CONSULT LVL 3,45M
[2025-02-08 04:07] LABS: Appearance Urine Clear (Clear); Glucose Urine UA 3+ (Negative)
[2025-02-08] MEDS: LACTATED RINGER'S 1,000 ML IV SCH (06:15)
[2025-02-08] MEDS: INSULIN ASPART PER UNIT CHARGE SC SCH ×2 (06:15→12:05)
[2025-02-08] MEDS: LEVOTHYROXINE SODIUM 25 MCG TABLET PO SCH (06:16)
[2025-02-08 08:58] LABS: Hematocrit (blood only) 36.2 % (37.0-47.0); Hemoglobin 11.6 g/dl (12.0-16.0); Immature Granulocytes # (auto) 0.06 K/uL (0.01-0.20); Immature Granulocytes % (auto) 0.5 %; Mean Corpuscular Hemoglobin 30.4 pg (25.0-34.0); Mean Corpuscular Volume 94.8 fL (80.0-100.0); Platelet Count 192 K/uL (130-400); RDW Standard Deviation 54.7 fL (36.4-46.3); Red Blood Count 3.82 M/uL (4.20-5.40); White Blood Count 11.59 K/ul (4.8-10.8)
[2025-02-08] MEDS: FAMOTIDINE 40 MG TABLET PO SCH (09:13)
[2025-02-08 09:14] LABS: Anion Gap 6.0 (3-11); Blood Urea Nitrogen 14.0 mg/dl (6-23); Calcium 9.3 mg/dl (8.6-10.3); Carbon Dioxide 29.0 mmol/L (21-32); Chloride 103.0 mmol/L (98-107); Creatinine Clr Calc Pharmacy 119.9 ml/min; Glucose 202.0 mg/dl (70-99(Fasting)); Potassium 4.2 mmol/L (3.5-5.1); Sodium 138.0 mmol/L (136-145)
[2025-02-08] MEDS: CHOLECALCIFEROL 25 MCG (1000 UNITS) TAB PO SCH (09:14)
[2025-02-08] MEDS: CETIRIZINE HCL 10 MG TABLET PO SCH (09:15)
[2025-02-08] MEDS: FLUTICASONE/VILANTEROL 100/25MCG 14 PUFFS/INHALER INH SCH (09:16)
--- NOTE | 2025-02-08 09:59 | History & Physical Report ---
Date of Service February 08, 2025 Assessment & Plan (1) Cervical cord compression with myelopathy: Plan: MRI of the cervical spine obtained yesterday confirms severe cord compression C3-C4 with myelomalacia. This is consistent with her clinical presentation. Patient has evidence of myelopathy. This point we will have her cleared medically and plan for urgent anterior cervical discectomy and fusion C3-C4 to halt the progression of disease and hopefully improve her function. Risk benefits pros cons and alternatives were all in detail. Will make her n.p.o. after midnight. Admission and Anticipated Discharge Date Admission Date: February 07, 2025 History of Present Illness Chief Complaint: Worsening arm symptoms and history of falls Primary Care Provider: Hermann Hatfield DO This is a 64-year-old female well-known to this presents with a marked decline in status. She is now falling secondary to balance issues involving lower extremities. She is noting dense numbness and coordination deficits in the right upper extremity compared to the left. This has been progressive in nature over the past several months. Allergies Allergy/AdvReac Type Severity Reaction Status Date / Time cefaclor Allergy Severe Dyspnea, Verified 02/01/25 12:31 redness cephalexin [From Keflex] Allergy Intermediate Pruritus, Verified 02/01/25 12:31 redness Cephalosporins Allergy Intermediate Pruritus Verified 02/01/25 12:31 (Keflex), Dyspnea (Cefaclor) latex Allergy Intermediate Contact Verified 02/07/25 10:15 dermatitis metoclopramide Allergy Intermediate Tachycardia Verified 02/01/25 12:31 nickel Allergy Contact Verified 02/07/25 10:15 dermatitis pravastatin AdvReac Intermediate Unverified 02/01/25 12:31 Home Medications Medication Instructions Recorded Confirmed Type cetirizine 10 mg tablet 10 mg PO QAM 12/06/19 02/01/25 History fluticasone propionate 50 2 sprays intranasal HS 12/06/19 02/01/25 History mcg/actuation nasal spray,suspension multivitamin 1 tab PO QPM 12/06/19 02/01/25 History epinephrine 0.3 mg/0.3 mL 0.3 mg (0.3 mL) IM Q10M PRN 11/05/22 02/01/25 Rx injection, auto-injector (EpiPen anaphylaxis #2 ea 2-Brandon) albuterol sulfate 90 mcg/actuation 2 puff inhalation Q6H PRN 06/23/23 02/01/25 Rx aerosol inhaler shortness of breath or wheezing #18 grams CPAP Machine #1 ea 11/07/23 11/04/24 Rx CPAP Supplies #1 ea 11/07/23 11/04/24 Rx furosemide 20 mg tablet (Lasix) 20 mg PO DAILY PRN leg swelling 01/06/24 02/01/25 History fluticasone furoate 100 1 inh inhalation QAM #60 ea 01/19/24 02/01/25 Rx mcg-vilanterol 25 mcg/dose inhalation powder (Breo Ellipta) syringe with needle 3 mL 25 x 5/8" #100 ea 01/19/24 11/04/24 Rx (BD Luer-Vee Syringe) azelastine 137 mcg (0.1 %) nasal 2 spray intranasal BID PRN 04/21/24 02/01/25 Rx spray Congestion #30 mL montelukast 10 mg tablet See Rx Instructions .Route 05/04/24 02/01/25 Rx .COMPLEX #90 tabs methocarbamol 500 mg tablet 500 mg PO QID PRN cervical disc 05/18/24 02/01/25 Rx disease #120 tabs prednisone 10 mg tablet See Rx Instructions .Route 10/18/24 02/01/25 Rx .COMPLEX #60 tabs dapsone 100 mg tablet See Rx Instructions .Route 10/22/24 02/01/25 Rx .COMPLEX #90 tabs gabapentin 100 mg capsule 100 mg PO .COMPLEX #90 caps 11/04/24 02/01/25 Rx iron infusion 1 dose IV UD 11/04/24 02/01/25 History cholecalciferol (vitamin D3) 25 100 mcg PO QAM 11/12/24 02/01/25 History mcg/drop (1,000 unit/drop) oral drops famotidine 40 mg tablet 40 mg PO QAM #90 tabs 11/15/24 02/01/25 Rx cyanocobalamin (vitamin B-12) 1,000 mcg IM MONTHLY #1 mL 01/21/25 02/01/25 Rx 1,000 mcg/mL injection solution levothyroxine 25 mcg tablet 25 mcg PO QAM 02/01/25 02/01/25 History (Synthroid) clonazepam 0.5 mg tablet 0.5 mg PO TID #90 tabs 02/07/25 Rx hydrocodone 10 mg-acetaminophen 1 tab PO Q6H #120 tabs 02/07/25 Rx 325 mg tablet Past Med/Surg History Problem List (Updated 02/07/25 @ 19:44 by Rajeev Parks) Lupus (systemic lupus erythematosus) (Acute) Osteoporosis Cervical cord compression with myelopathy (Acute) Post-menopause Cervical radiculopathy Iron deficiency Vitamin B12 deficiency Duodenal ulcer Hiatal hernia Repaired with gastric bypass Depression 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 Guadalupe Long-term use of high-risk medication (Chronic) [facility] (current) use of systemic steroids (Chronic) Left breast mass (Chronic) "benign" biopsy Intussusception, acquired (Chronic) hx of Chronic lower back pain (Chronic) Cervical disc disease (Chronic) Axillary adenopathy (Chronic) Arthritis (Chronic) Anxiety (Chronic) Anemia (Chronic) Allergic rhinitis (Chronic) HARPER positive (Chronic) Medical History Chronic sinusitis Tobacco abuse Pt states was told that she needs to stop smoking prior to surgery so she has been trying to cut back but still occasional cigarette Obesity s/p gastric bypass surgery Mast cell activation syndrome Anxiety and depression Cervical disc disease Multiple previous c-spine surgeries; currently c/o severe radicular sx; states R hand completely numb, RUE with significant numbness/tingling, LUE and B/L LE affected also Anemia Iron deficiency- occasionally receives iron infusions B12 deficiency- receives monthy injections Sleep apnea Has not been using CPAP since having teeth pulled 10/2024 History of COVID-19 2020 + 2021 (home test)- mild symptoms > resolved, no current symptoms Asthma with COPD GERD (gastroesophageal reflux disease) Hx Lupus (systemic lupus erythematosus) Dx ~[address] Guadalupe "Affects joints"; takes prednisone daily Chronic idiopathic urticaria Surgical History History of postoperative nausea and vomiting Status post blepharoplasty of both eyes Per records Hx of bilateral cataract extraction Hx of cardiac catheterization 12/2022 (family hx CAD + coronary calcifications on CT chest), [facility]- no stents, mild non-obstructive disease Epidermal cyst In office procedure (08/2022) Skin, right back cyst, excision- Epidermoid cyst History of colonoscopy History of esophagogastroduodenoscopy (EGD) [facility] Nausea and vomiting after administration of anesthetic agent History of tubal ligation History of tonsillectomy and adenoidectomy History of sinus surgery History of shoulder surgery Left x2 History of neck surgery x3 (including fusion) History of mastoidectomy Left H/O arthroscopic knee surgery History of gastric bypass 2000 with repair of hiatal hernia History of cholecystectomy History of ankle surgery S/P LETHA (total abdominal hysterectomy) Family History Sister Anxiety Breast cancer Mother Diabetes Colorectal cancer Cancer Stroke Father Diabetes Hypertension Hearing loss Stroke Heart disease Other No family history of adverse response to anesthesia Denies family history of Ovarian cancer Prostate cancer Myocardial infarction Asthma Social History Smoking Status: Current some day smoker Tobacco Type: Cigarettes Age Started Using Tobacco: 16; packs per day: 0.5; Cigarettes Per Day: 1-10; Second Hand Exposure: No; Do You Dip or Chew Tobacco: No; Hx Alcohol Use: No Hx Substance Use: No Preferred Language: Hungarian Communication Ability: Effective Visual Impairment: Limited Hearing Ability: Normal Ripsaw Operator Required: No Beliefs That Will Affect Care: None marital status: Current Living Situation: Spouse current occupational status: employed current occupation: "filing for " How many Children do You have: 2 Other Information That Helps Us Care for You: No Feels Safe at Home: Yes Safety Concerns: Feels Safe At This Time Childhood Exposure to Second-Hand Smoke: No Diet: regular during the past year weight has: increased > 10 lbs Dental Care, Regularly: Yes Physical Activity Frequency: 1-2 Times per Week Physical Activity Frequency Comment: Exercised limited by physical condition Seatbelt Use: always Sunscreen Use: Yes Do you think of yourself as: straight/heterosexual Assistive Devices: None Physical Exam Physical Exam: Patient is currently in bed. 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 She has marked dense numbness to the right upper extremity compared to the left. Positive Rosy sign bilaterally. Strength is a 4/5 grasp biceps triceps deltoids. Results & Data Results & Data Vital Signs (Past 12 Hours) Vital Signs Temp Pulse Resp BP Pulse Ox O2 Del Method 02/08/25 09:06 36.9 C 58 L 17 152/80 H 95 Room Air Code Status & VTE Plan VTE Prophylaxis Plan VTE Prophylaxis will be ordered: Yes
[2025-02-08] MEDS ORDERED: Nursing to Pharmacy Communication SCH (11:00)
--- NOTE | 2025-02-08 11:02 | Hospitalist Progress Note ---
Date of Service February 08, 2025 Assessment & Plan (1) Lupus (systemic lupus erythematosus): (2) Cervical cord compression with myelopathy: (3) Cervical radiculopathy: (4) Aortic calcification: (5) Severe chronic obstructive pulmonary disease: Plan Joan is a 64F with a PMHx of cervical pain, lupus (on chronic steroids), COPD, hypothyroid and anxiety who presents with worsening right arm numbness and tingling. Plan for surgery with Dr. Erickson, hospital medicine consulted for medical management. #Cervical pain/cervical radiculopathy/numbness and tingling - chronic w/ cervical pain, cervical radiculopathy, numbness/tingling of distal extremities ( amrita r. distal fingers) - MRI: Advanced disc degeneration at C3-4 with annular disc bulge flattening the ventral cord with cord edema and causing a critical spinal canal stenosis. There is severe bilateral neuroforaminal stenoses with impingement of the C4 nerve roots. Neurosurgical consult for decompression. Surgical management (pain control, dvt proh, etc) per primary surgical team #Murmur (ROCK border)/pedal edema - murmur heard at ROCK border concerning for aortic stenosis - pedal edema, +1 pitting edema, bilaterally Echo pending #Lupus On chronic prednisone 20mg - patient reports it has been higher but she has never been able to wean lower. Should have stress dose steroid with surgery #Hyperglycemia No hx of prediabetes or diabetes, but on chronic steroids. A1c 5.9 Continue SSI with steroids and planned stress dose #Pre-op evaluation - Patient w/ RCRI score of 0, assuming that above murmur, pedal edema are not symptoms of CHF. - Cr, 0.64 - No past Dx of T2DM, no WA's/CAD, no strokes, no past Dx #hx of gastric bypass - noted, avoid NSAIDs #GERD, continue famotidine, Flonase #idiopathic urticaria, continue montelukast #COPD, continue Breo Ellipta #hypothyroidism, continue levothyroxine #anxiety, continue Klonopin Thank you for allowing us to participate in the care of this patient, please reach out with any questions or concerns. Hospital medicine will continue to follow. Admission and Anticipated Discharge Date Admission Date: February 07, 2025 Subjective Patient seen sitting up in the chair - reports right arm is pretty numb. pain comes and goes moved bowels yesterday has been on prednisone for 7-8 years Review of Systems Review of Systems: All systems reviewed & are unremarkable except as noted in Subjective Physical Exam Physical Exam: General: NAD, VS as above Resp: normal respiratory effort, lungs clear to auscultation CV: RRR, + murmur, Abd: normal bowel sounds, non tender, no hepatosplenomegaly Extremities: Moves all extremities, trace edema Neuro: A&O x3, Skin: intact, no lesions noted Results & Data Results & Data Vital Signs (Past 12 Hours) Vital Signs Temp Pulse Resp BP Pulse Ox O2 Del Method 02/08/25 09:06 98.4 F 58 L 17 152/80 H 95 Room Air Laboratory Results cbc and chemistry reviewed PG Care Time/CCT Total # of Minutes Spent Total Time Spent with Patient: Total time spent is greater than 50% in coordination of care (as documented) at patient's floor/unit and/or counseling patient: Coding Level of Care Code 79346 SUB INP/OBS CARE 3/50MIN Diagnoses Lupus (systemic lupus erythematosus) M32.9 Systemic lupus erythematosus organ involvement: unspecified Systemic lupus erythematosus type: unspecified Cervical cord compression with myelopathy G95.20 Cervical radiculopathy M54.12 Aortic calcification I70.0 Severe chronic obstructive pulmonary disease J44.9 (1) Lupus (systemic lupus erythematosus) Systemic lupus erythematosus organ involvement: unspecified Systemic lupus erythematosus type: unspecified Qualified Code(s): M32.9 - Systemic lupus erythematosus, unspecified
[2025-02-08 11:08] LABS: Hemoglobin A1C 5.9 % (4.5-5.6)
--- NOTE | 2025-02-08 16:15 | XCELERA ---
[id number]
[2025-02-08] MEDS: CYCLOBENZAPRINE HCL 5 MG TAB PO PRN (17:03)
[2025-02-09] MEDS: VANCOMYCIN HCL 1,500 MG in SODIUM CHLORIDE 0.9% 500 ML IV SCH ×3 (04:35→19:55)
[2025-02-09] MEDS ORDERED: Nursing to Pharmacy Communication SCH ×3 (04:45→12:15)
--- NOTE | 2025-02-09 06:04 | Electrocardiogram Report ---
Test Reason : Blood Pressure : */* mmHG Vent. Rate : 67 BPM Atrial Rate : 67 BPM P-R Int : 184 ms QRS Dur : 86 ms QT Int : 404 ms P-R-T Axes : 54 -1 19 degrees QTcB Int : 426 ms Normal sinus rhythm Poor R wave progression, consider anterior NE vs. lead placement vs. LVH Nonspecific T wave abnormality Abnormal ECG When compared with ECG of 13-Jan-2006 13:45, Nonspecific T wave abnormality is now Present Confirmed by Won Alford ([id number]) on 02/09/2025 6:04:27 AM Referred By: REFERRED SELF Confirmed By: Won Alford
--- NOTE | 2025-02-09 06:04 | Electrocardiogram Report ---
Test Reason : Blood Pressure : */* mmHG Vent. Rate : 53 BPM Atrial Rate : 53 BPM P-R Int : 188 ms QRS Dur : 96 ms QT Int : 446 ms P-R-T Axes : 66 17 41 degrees QTcB Int : 418 ms Sinus bradycardia Incomplete right bundle branch block Borderline ECG When compared with ECG of 07-Feb-2025 15:50, Borderline criteria for Anterior infarct are no longer Present T wave amplitude has increased in Lateral leads Confirmed by Won Alford ([id number]) on 02/09/2025 6:04:49 AM Referred By: REFERRED SELF Confirmed By: Won Alford
[2025-02-09] MEDS: INSULIN ASPART PER UNIT CHARGE SC SCH ×2 (06:08→12:51)
[2025-02-09] MEDS ORDERED: PROPOFOL IV EMULSION 10 MG/ML 20 ML VIAL IV ONE (06:55)
[2025-02-09] MEDS ORDERED: GLYCOPYRROLATE 0.2 MG/ML VIAL ONE (06:55)
[2025-02-09] MEDS ORDERED: LIDOCAINE 2% 2 ML VIAL/AMP(20MG/ML) INFIL ONE (06:55)
[2025-02-09] MEDS ORDERED: ROCURONIUM BROMIDE 10 MG/ML 5 ML VIAL IV ONE (06:55)
[2025-02-09] MEDS ORDERED: MIDAZOLAM HCL 1 MG/ML 2ML VIAL ONE (06:55)
[2025-02-09] MEDS ORDERED: DEXAMETHASONE SOD INJ 4 MG/ML VIAL ONE (06:55)
[2025-02-09] MEDS ORDERED: ONDANSETRON INJ 2 MG/ML 2 ML VIAL ONE (06:55)
[2025-02-09] MEDS ORDERED: SUGAMMADEX SODIUM 200 MG/2 ML VIAL IV ONE (07:00)
--- NOTE | 2025-02-09 07:03 | Anesthesiology Consultation ---
Date of Service February 09, 2025 Assessment & Plan Chart Review Chart Review: Acceptable Risk for Surgery and Patient NOT seen in Pre Admission Testing Consults Requested none ASA ASA3 Proposed Anesthesia Anesthesia Type: General Risk / Benefits Reviewed With: PT / POA / Parent / Guardian, Accepts Plan and Informed Consent Obtained Additional Comments: patient has yes left sided radiculopathy and right sided tingling. patient takes 20 mg prednisone daily for many years. will stress with 100 mg hydrocort. plan for glidescope intubation. ASA3. History Surgery Operation Date: 02/09/25 07:45 Proposed Procedures p C3-C4 Anterior Cervical Discectomy Fusion - Stewart Erickson, Height/Weight Height: 5 ft 10 in Weight: 94.4 kg Allergies Allergy/AdvReac Type Severity Reaction Status Date / Time cefaclor Allergy Severe Dyspnea, Verified 02/01/25 12:31 redness cephalexin [From Keflex] Allergy Intermediate Pruritus, Verified 02/01/25 12:31 redness Cephalosporins Allergy Intermediate Pruritus Verified 02/01/25 12:31 (Keflex), Dyspnea (Cefaclor) latex Allergy Intermediate Contact Verified 02/07/25 10:15 dermatitis metoclopramide Allergy Intermediate Tachycardia Verified 02/01/25 12:31 nickel Allergy Contact Verified 02/07/25 10:15 dermatitis pravastatin AdvReac Intermediate Unverified 02/01/25 12:31 Medications Home Medications Medication Instructions Recorded Confirmed Last Taken cetirizine 10 mg tablet 10 mg PO QAM 12/06/19 02/01/25 10/23/20 fluticasone propionate 50 2 sprays intranasal HS 12/06/19 02/01/25 10/23/20 mcg/actuation nasal spray,suspension multivitamin 1 tab PO QPM 12/06/19 02/01/25 10/23/20 epinephrine 0.3 mg/0.3 mL 0.3 mg (0.3 mL) IM Q10M PRN 11/05/22 02/01/25 Unknown injection, auto-injector (EpiPen anaphylaxis #2 ea 2-Brandon) albuterol sulfate 90 mcg/actuation 2 puff inhalation Q6H PRN 06/23/23 02/01/25 Unknown aerosol inhaler shortness of breath or wheezing #18 grams CPAP Machine #1 ea 11/07/23 11/04/24 Unknown CPAP Supplies #1 ea 11/07/23 11/04/24 Unknown furosemide 20 mg tablet (Lasix) 20 mg PO DAILY PRN leg swelling 01/06/24 02/01/25 Unknown fluticasone furoate 100 1 inh inhalation QAM #60 ea 01/19/24 02/01/25 Unknown mcg-vilanterol 25 mcg/dose inhalation powder (Breo Ellipta) syringe with needle 3 mL 25 x 5/8" #100 ea 01/19/24 11/04/24 Unknown (BD Luer-Vee Syringe) azelastine 137 mcg (0.1 %) nasal 2 spray intranasal BID PRN 04/21/24 02/01/25 Unknown spray Congestion #30 mL montelukast 10 mg tablet See Rx Instructions .Route 05/04/24 02/01/25 Unknown .COMPLEX #90 tabs methocarbamol 500 mg tablet 500 mg PO QID PRN cervical disc 05/18/24 02/01/25 Unknown disease #120 tabs prednisone 10 mg tablet See Rx Instructions .Route 10/18/24 02/01/25 Unknown .COMPLEX #60 tabs dapsone 100 mg tablet See Rx Instructions .Route 10/22/24 02/01/25 Unknown .COMPLEX #90 tabs gabapentin 100 mg capsule 100 mg PO .COMPLEX #90 caps 11/04/24 02/01/25 Unknown iron infusion 1 dose IV UD 11/04/24 02/01/25 Unknown cholecalciferol (vitamin D3) 25 100 mcg PO QAM 11/12/24 02/01/25 Unknown mcg/drop (1,000 unit/drop) oral drops famotidine 40 mg tablet 40 mg PO QAM #90 tabs 11/15/24 02/01/25 Unknown cyanocobalamin (vitamin B-12) 1,000 mcg IM MONTHLY #1 mL 01/21/25 02/01/25 Unknown 1,000 mcg/mL injection solution levothyroxine 25 mcg tablet 25 mcg PO QAM 02/01/25 02/01/25 Unknown (Synthroid) clonazepam 0.5 mg tablet 0.5 mg PO TID #90 tabs 02/07/25 Unknown hydrocodone 10 mg-acetaminophen 1 tab PO Q6H #120 tabs 02/07/25 Unknown 325 mg tablet Active Medications Generic Name Dose Route Start Last Admin Trade Name Freq PRN Reason Stop Dose Admin Cetirizine HCl 10 mg 02/08/25 09:00 02/08/25 09:15 Cetirizine Hcl 10 Mg Tablet PO 03/10/25 08:59 10 mg QAM ELIANE Administration Clonazepam 0.5 mg 02/07/25 21:45 02/08/25 20:16 Clonazepam 0.5 Mg Tab PO 03/09/25 21:44 0.5 mg TID ELIANE Administration Cyclobenzaprine HCl 5 mg 02/08/25 16:46 02/08/25 23:16 Cyclobenzaprine Hcl 5 Mg Tab PO 03/10/25 20:59 5 mg TID PRN Administration Muscle Spasm Dapsone 100 mg 02/07/25 21:45 02/08/25 20:15 Dapsone 25 Mg Tab PO 03/09/25 21:44 100 mg HS ELIANE Administration Famotidine 40 mg 02/08/25 09:00 02/08/25 09:13 Famotidine 40 Mg Tablet PO 03/10/25 08:59 40 mg QAM ELIANE Administration Fluticasone Propionate 2 sprays 02/07/25 21:45 02/08/25 20:16 Fluticasone Propionate Na Spr 16 Gm Btl NA 03/09/25 21:44 2 sprays HS ELIANE Administration Fluticasone/Vilanterol 1 puffs 02/08/25 09:00 02/08/25 09:16 Fluticasone/Vilanterol 100/25mcg 14 Puffs/Inhaler INH 03/10/25 08:59 1 puffs QAM ELIANE Administration Hydromorphone HCl 0.5 mg 02/07/25 21:34 02/08/25 23:16 Hydromorphone Inj 0.5 Mg/0.5 Ml Syr IV 02/21/25 21:33 0.5 mg Q3H PRN Administration MOD pain (scale 4-6) & Pre PT Vancomycin HCl 1,500 mg/ 530 mls @ 200 mls/hr 02/09/25 06:00 02/09/25 07:16 Sodium Chloride IV 02/10/25 05:59 200 mls/hr PREOP ELIANE Administration Lactated Ringer's 1,000 mls @ 15 mls/hr 02/09/25 07:45 02/09/25 07:37 Lr IV 02/12/25 07:44 15 mls/hr .Q24H ELIANE Administration Insulin Aspart 0 units 02/09/25 06:00 02/09/25 06:08 Insulin Aspart Per Unit Charge SC 03/11/25 05:59 Not Given Q6 ELIANE Levothyroxine Sodium 25 mcg 02/08/25 06:30 02/09/25 05:50 Levothyroxine Sodium 25 Mcg Tablet PO 03/10/25 06:29 25 mcg DAILYBB ELIANE Administration Montelukast Sodium 10 mg 02/08/25 09:00 02/07/25 22:53 Montelukast Sodium 10 Mg Tablet PO 03/10/25 08:59 10 mg DAILY ELIANE Administration Multivitamins 1 tab 02/07/25 21:45 02/08/25 20:15 Multivitamin Tab PO 03/09/25 21:44 1 tab QPM ELIANE Administration Oxycodone HCl 5 - 10 mg 02/07/25 21:34 02/08/25 13:47 Oxycodone Hcl Ir 5 Mg Tab (Immediate Release) PO 02/21/25 21:33 5 mg Q4H PRN Administration mod to severe pain Prednisone 20 mg 02/08/25 09:00 02/08/25 09:14 Prednisone 10 Mg Tablet PO 03/10/25 08:59 20 mg DAILY ELIANE Administration Vitamin D 100 mcg 02/08/25 09:00 02/08/25 09:14 Cholecalciferol 25 Mcg (1000 Units) Tab PO 03/10/25 08:59 100 mcg QAM ELIANE Administration NPO Date Last Intake of Fluids: 02/07/25 Time Last Intake of Fluids: 23:59 Date Last Intake of Solids: 02/07/25 Time Last Intake of Solids: 23:59 Past Medical History Medical History Chronic sinusitis Tobacco abuse Pt states was told that she needs to stop smoking prior to surgery so she has been trying to cut back but still occasional cigarette Obesity s/p gastric bypass surgery Mast cell activation syndrome Anxiety and depression Cervical disc disease Multiple previous c-spine surgeries; currently c/o severe radicular sx; states R hand completely numb, RUE with significant numbness/tingling, LUE and B/L LE affected also Anemia Iron deficiency- occasionally receives iron infusions B12 deficiency- receives monthy injections Sleep apnea Has not been using CPAP since having teeth pulled 10/2024 History of COVID-19 2020 + 2021 (home test)- mild symptoms > resolved, no current symptoms Asthma with COPD GERD (gastroesophageal reflux disease) Hx Lupus (systemic lupus erythematosus) Dx ~[address] Guadalupe "Affects joints"; takes prednisone daily Chronic idiopathic urticaria Past Family History Family History Sister Anxiety Breast cancer Mother Diabetes Colorectal cancer Cancer Stroke Father Diabetes Hypertension Hearing loss Stroke Heart disease Other No family history of adverse response to anesthesia Denies family history of Ovarian cancer Prostate cancer Myocardial infarction Asthma Past Surgical History Surgical History History of postoperative nausea and vomiting Status post blepharoplasty of both eyes Per records Hx of bilateral cataract extraction Hx of cardiac catheterization 12/2022 (family hx CAD + coronary calcifications on CT chest), [facility]- no stents, mild non-obstructive disease Epidermal cyst In office procedure (08/2022) Skin, right back cyst, excision- Epidermoid cyst History of colonoscopy History of esophagogastroduodenoscopy (EGD) History of endoscopic sinus surgery [facility], Dr. Arellano Nausea and vomiting after administration of anesthetic agent History of tubal ligation History of tonsillectomy and adenoidectomy History of sinus surgery History of shoulder surgery Left x2 History of neck surgery x3 (including fusion) History of mastoidectomy Left H/O arthroscopic knee surgery History of gastric bypass 2000 with repair of hiatal hernia History of cholecystectomy History of ankle surgery S/P LETHA (total abdominal hysterectomy) Past Anesthesia History No Hx of Anesthesia Complications and No Family Hx of Anesthesia Complications Social History Smoking Status: Current some day smoker tobacco type: cigarettes Smoking cigarettes per day: 1-10 Do You Dip or Chew Tobacco: No Hx Alcohol Use: No Hx Substance Use: No substance use type: does not use Review of Systems ROS Unobtainable: All systems reviewed & are unremarkable except as noted in HPI & below Physical Exam Vital Signs Last Vital Signs Temp 36.6 C 02/08/25 22:04 Pulse 67 02/08/25 22:04 Resp 16 02/08/25 22:04 BP 145/73 H 02/08/25 22:04 Pulse Ox 94 02/09/25 00:39 O2 Del Method Room Air 02/09/25 00:39 O2 Flow Rate 0 02/07/25 18:03 ENMT Mouth: no TMJ abnormality Thyromental Distance: > or= 3.5 Finger Breadths Mallampati Class: II Neck normal visual inspection and trachea midline; neck extension not limited Respiratory normal respiratory effort Auscultation: lungs clear to auscultation bilaterally Cardiovascular Rate/Rhythm: regular rate and regular rhythm Heart Sounds: no murmur Musculoskeletal Spine: normal cervical ROM Extremities: full ROM of extremities Neurologic moves all extremities Psychiatric Orientation: alert and oriented x 3 Testing Laboratory Results 02/08/25 08:47 02/08/25 08:47 PT 10.0 Seconds (9.0-12.0) 02/07/25 15:55 INR 0.9 (0.9-1.1) 02/07/25 15:55 APTT 23 Seconds (21-31) 02/07/25 15:55 Hemoglobin A1c 5.9 % (4.5-5.6) H 02/08/25 08:47 Urine Color Yellow 02/08/25 03:42 Urine Appearance Clear (Clear) 02/08/25 03:42 Urine pH 5.5 (4.5-7.5) 02/08/25 03:42 Ur Specific [place] 1.019 (1.000-1.030) 02/08/25 03:42 Urine Protein Negative (Negative) 02/08/25 03:42 Urine Glucose (UA) 3+ (Negative) H 02/08/25 03:42 Urine Ketones 1+ (Negative) H 02/08/25 03:42 Urine Nitrite Negative (Negative) 02/08/25 03:42 Ur Leukocyte Esterase Negative (Negative) 02/08/25 03:42 02/09/25 02/08/25 05:49 20:22 POC Glucose 159 H 228 H Electrocardiogram Date: 02/07/25 Sinus bradycardia Incomplete right bundle branch block Borderline ECG When compared with ECG of 07-Feb-2025 15:50, Borderline criteria for Anterior infarct are no longer Present T wave amplitude has increased in Lateral leads Confirmed by Won Alford ([id number]) on 02/09/2025 6:04:49 AM Echocardiogram Date: 02/08/25 EF: 65-70 LV Function: normal Valvular Disease: + no significant valvular disease
[2025-02-09 07:21] LABS: Hematocrit (blood only) 38.6 % (37.0-47.0); Hemoglobin 11.8 g/dl (12.0-16.0); Immature Granulocytes # (auto) 0.05 K/uL (0.01-0.20); Immature Granulocytes % (auto) 0.4 %; Mean Corpuscular Hemoglobin 29.6 pg (25.0-34.0); Mean Corpuscular Volume 96.7 fL (80.0-100.0); Platelet Count 187 K/uL (130-400); RDW Standard Deviation 57.5 fL (36.4-46.3); Red Blood Count 3.99 M/uL (4.20-5.40); White Blood Count 12.73 K/ul (4.8-10.8)
[2025-02-09] MEDS: LACTATED RINGER'S 1,000 ML IV SCH ×2 (07:37→12:04)
[2025-02-09 07:42] LABS: Anion Gap 5.0 (3-11); Blood Urea Nitrogen 13.0 mg/dl (6-23); Calcium 9.3 mg/dl (8.6-10.3); Carbon Dioxide 31.0 mmol/L (21-32); Chloride 105.0 mmol/L (98-107); Creatinine Clr Calc Pharmacy 108.9 ml/min; Glucose 163.0 mg/dl (70-99(Fasting)); Magnesium 2.5 mg/dl (1.7-2.4); Potassium 3.8 mmol/L (3.5-5.1); Sodium 141.0 mmol/L (136-145)
--- NOTE | 2025-02-09 07:42 | History & Physical Bridge Note ---
Date of Service February 09, 2025 History & Physical Bridge Note I have examined the patient, reviewed the History & Physical and in the interval since the performance of the History & Physical I have noted the following changes of clinical significance: no changes noted Patient has evidence of myeloradiculopathy with progressive functional decline and is here for urgent anterior cervical discectomy and fusion C3-C4.
[2025-02-09] MEDS ORDERED: ONDANSETRON INJ 2 MG/ML 2 ML VIAL IV PRN ×2 (07:43→11:46)
[2025-02-09] MEDS ORDERED: ATROPINE SULFATE 0.1 MG/ML 10ML SYR IV PRN (07:43)
[2025-02-09] MEDS ORDERED: HYDROCORTISONE SOD SUCCINATE 100 MG/2 ML VIAL ONE (08:13)
[2025-02-09] MEDS: BUPIVACAINE/EPINEPHRINE 0.25% 1:200,000 30 ML VIAL ONE (08:33)
[2025-02-09] MEDS: ceFAZolin 330 MG/ML 1 GM VIAL ONE (09:01)
[2025-02-09] MEDS: FLOSEAL HEMOSTATIC MATRIX 10ML TOP ONE (09:02)
--- NOTE | 2025-02-09 09:12 | Operative Report ---
Post Operative Report Pre & Post Diagnosis Operation Date: 02/09/25 07:45 Pre-Op Diagnosis: Cervical cord compression with myelopathy Post-Op Diagnosis: Cervical cord compression with myelopathy I identified the patient and participated in the time-out.: Yes Procedure Operation Date: 02/09/25 07:45 Actual Procedures #1 anterior cervical discectomy with bilateral foraminotomies C3-C4. #2 anterior cervical arthrodesis C3-C4. #3 placement of Spira integrated 8 mm cage filled with os design bone graft and local autograft at C3-C4. Surgeon Stewart Erickson, Quality Tech Jo Frost Estimated Blood Loss 10 Findings Consistent with Post-Op Diagnosis Specimens None Indications This is a 64-year-old female who presents with much diagnosis. Demonstrating marked decline in functional status and evidence of myelomalacia she is here for urgent surgery. Description of Procedure Patient met with identified informed consent obtained. Patient was then taken to the operative suite underwent sedation placed in spine position on the Franki table with head Majano head ordered. All bony prominences well-padded eyes inspected to ensure no external precipice upon them. This point the anterior cervical spine was prepped and draped in normal sterile fashion. With the assistance of fluoroscopy identified the C3-C4 displacement transverse incision was placed along the right anterior aspect of the cervical spine overlying this region. Blunt dissection with the assistance of bipolar electrocautery performed down to exposing the anterior cervical spine at C3-C4. Self-retaining retractors placed. Then performed a complete discectomy of C3-C4 out to the uncovertebral joints bilaterally. [place] distracting pins were utilized to assist with visualization. I removed all posterior annular fibers longitudinal ligament and bilateral foraminotomies performed for complete decomp ression. Endplates were then burred to subcortical bleeding bone and an 8 mm Spira integrated cage tapped into position and screwed into place with fluoroscopic visualization. Distractor apparatus was removed. Incision was explored to ensure no damage to surrounding structures remaining bleeding. 10 round ROM drain inserted. The incision was then closed with 2 Vicryl in the fascia and 4 Monocryl for final skin closure. Steri-Strips and sterile dressing placed. Patient waken taken to PACU stable condition. Please note spinal cord monitoring was utilized at the procedure no changes noted. Jo Frost was present out the entire procedure involved the patient positioning complex portion of the surgery and possible closure. I attest to the content of the Intraoperative Record and any orders documented therein. Any exceptions are noted below.
--- NOTE | 2025-02-09 09:34 | Fluoroscopy Report ---
FL cervical 2-3V CLINICAL HISTORY: C3-C4 ACDF COMPARISON STUDY: Cervical spine MRI February 07, 2025. Fluoroscopy time: 7 seconds. Number of fluoroscopic images: 2. Ka,r: 0.65 mGy. FINDINGS: Fluoroscopy was provided during C3-C4 anterior discectomy and fusion. Previous C4-C7 anteri or discectomy fusion is incidentally noted. Linear radiodensity consistent with a sponge marker on th e initial image is not present on the subsequent image. Surgical drain is in place. Endotracheal tube is partially imaged. IMPRESSION: Fluoroscopy provided during C3-C4 anterior discectomy and fusion. ACT 112: Negative or not required by law. Electronically signed by: Jose Elias Upton M.D. 02/09/2025 9:33 AM
[2025-02-09] MEDS: HYDROmorphone INJ 1 MG/ML SYRINGE IV PRN (10:07)
[2025-02-09] MEDS ORDERED: diphenhydrAMINE Capsule 25 MG CAP PO PRN (11:46)
[2025-02-09] MEDS ORDERED: SOD PHOSPHATE/SOD BIPHOSPHATE ENEMA 132 ML BTL PR PRN (11:46)
[2025-02-09] MEDS ORDERED: ONDANSETRON 4 MG OD TAB PO PRN (11:46)
[2025-02-09] MEDS ORDERED: ACETAMINOPHEN 1,000 MG/100 ML VIAL IV PRN (11:46)
[2025-02-09] MEDS ORDERED: ACETAMINOPHEN 500 MG TAB PO PRN (11:46)
[2025-02-09] MEDS ORDERED: dexAMETHasone 8 MG in SYRINGE 0 ML IV PRN (11:46)
[2025-02-09] MEDS ORDERED: VANCOMYCIN CONSULT ACTIVE PRN (11:46)
[2025-02-09] MEDS ORDERED: LORazepam 0.5 MG TAB PO PRN (11:46)
[2025-02-09] MEDS ORDERED: FAMOTIDINE 20 MG TAB PO PRN (11:46)
[2025-02-09] MEDS ORDERED: METOCLOPRAMIDE HCL INJ 5 MG/ML 2 ML VIAL IV PRN (11:46)
[2025-02-09] MEDS ORDERED: DO NOT ADMINISTER FLU VACCINE PRN (11:46)
[2025-02-09] MEDS ORDERED: DO NOT ADMINISTER PNEUMOCOCCAL VACCINE PRN (11:46)
[2025-02-09] MEDS ORDERED: PROMETHAZINE 12.5 MG/50.5 ML BAG IV PRN (11:46)
[2025-02-09] MEDS ORDERED: MAGNESIUM HYDROXIDE SUSP 30 ML UDC PO PRN (11:46)
[2025-02-09] MEDS ORDERED: RACEPINEPHRINE 2.25% NEBU SOLN 0.5 ML VIAL INH PRN (11:46)
[2025-02-09] MEDS ORDERED: ALUMINUM/MAGNESIUM SUSP 30 ML UDC PO PRN (11:46)
[2025-02-09] MEDS ORDERED: NALOXONE HCL 0.4 MG/1 ML VIAL/CARP IV PRN (11:46)
[2025-02-09] MEDS ORDERED: PHARMACY GLYCEMIC MGMT CONSULT PRN (12:04)
--- NOTE | 2025-02-09 12:09 | Anesthesiology Progress Note ---
Date of Service February 09, 2025 Anesthesia Post Procedure Vital Signs Vital Signs: Temp Pulse Pulse Resp BP BP Pulse Ox 02/09/25 11:45 37 C 65 19 150/72 H 93 02/09/25 11:20 60 15 140/62 93 02/09/25 11:10 57 L 19 138/60 92 02/09/25 11:00 54 L 21 135/60 92 02/09/25 10:50 54 L 12 140/81 92 02/09/25 10:40 54 L 13 149/61 H 92 02/09/25 10:30 36.6 C 53 L 19 134/59 L 93 02/09/25 10:20 52 L 13 138/63 92 02/09/25 10:10 60 20 160/68 H 92 02/09/25 10:00 54 L 14 166/67 H 93 02/09/25 09:50 54 L 17 168/69 H 92 02/09/25 09:40 57 L 19 170/71 H 91 02/09/25 09:30 60 22 186/77 H 90 02/09/25 09:22 36.7 C 67 12 178/93 H 92 02/09/25 07:20 36.7 C 55 L 20 163/74 H 92 02/09/25 00:39 94 02/08/25 22:04 36.6 C 67 16 145/73 H 91 02/08/25 15:27 36.7 C 64 16 133/71 91 O2 Del Method O2 Flow Rate 02/09/25 11:45 Nasal Cannula 5 02/09/25 11:20 Oxymask 3 02/09/25 11:10 Oxymask 3 02/09/25 11:00 Oxymask 3 02/09/25 10:50 Oxymask 3 02/09/25 10:40 Oxymask 3 02/09/25 10:30 Oxymask 3 02/09/25 10:20 Oxymask 3 02/09/25 10:10 Oxymask 3 02/09/25 10:00 Oxymask 4 02/09/25 09:50 Oxymask 4 02/09/25 09:40 Oxymask 6 02/09/25 09:30 Oxymask 6 02/09/25 09:22 Oxymask 6 02/09/25 07:20 Room Air 02/09/25 00:39 Room Air 02/08/25 22:04 Room Air 02/08/25 15:27 Room Air Pain Intensity Neck: Pain Intensity: 5 Transfer of Care Handoff Completed per policy Notes Mental Status: alert / awake / arousable Patient Amnestic to Procedure: Yes Nausea / Vomiting: adequately controlled Pain: adequately controlled Airway Patency, RR, SpO2: stable & adequate BP & HR: stable & adequate Hydration State: stable & adequate Anesthetic Complications: no major complications apparent and Pt Satisfied with anesthetic care
--- NOTE | 2025-02-09 13:18 | Pharmacy Report ---
Pharmacy Glycemic Short Note 2 - Date of Service February 09, 2025 - Glycemic Short BSG Results (Last 24 hours): 02/08/25 02/08/25 02/09/25 16:34 20:22 05:49 Glucose POC Glucose 231 H 228 H 159 H 02/09/25 02/09/25 02/09/25 07:01 07:32 11:47 Glucose 163 H POC Glucose 149 H 256 H OUTPATIENT ANTIDIABETIC REGIMEN: * N/A ASSESSMENT: * 64 year old s/p surgery, POD 0 - PMHx significant for cervical pain, lupus (on chronic steroids), COPD, hypothyroidism. Pharmacy consulted for glycemic management. No history of diabetes per notes, however on chronic steroids. A1c 5.9% on admission. BSGs >250 mg/dL postop today. Patient did receive IV dexamethasone intraoperatively and then also is ordered dexamethasone 6 mg iv q 8 hours x 3 doses postop. Plan to start novolog weight based stress 3 do sing. Will start Lantus 0.2 units/kg x 1 now and likely will have scale on for HS time to ensure BSGs stable. PLAN FOR INPATIENT GLYCEMIC CONTROL: * Hold outpatient oral diabetes medications * Basal insulin * Lantus 15 units x 1 * Lantus 0-15 hs * Bolus insulin * NovoLog per scale ACHS or Q6hrs while NPO * Goal Range: Low 110 mg/dL - High 140 mg/dL * Correction Factor: 15 mg/dL/unit * Nutritional / Prandial insulin per carb ratio of 1 unit per 6 grams CHO consumed
[2025-02-09] MEDS: dexAMETHasone 6 MG in SYRINGE 0 ML IV SCH (13:37)
[2025-02-09] MEDS: LANTUS PER UNIT CHARGE SC ONE ×2 (13:52→17:50)
--- NOTE | 2025-02-09 16:42 | Hospitalist Progress Note ---
Date of Service February 09, 2025 Assessment & Plan (1) Lupus (systemic lupus erythematosus): (2) Cervical cord compression with myelopathy: (3) Cervical radiculopathy: (4) Aortic calcification: (5) Severe chronic obstructive pulmonary disease: Plan Joan is a 64F with a PMHx of cervical pain, lupus (on chronic steroids), COPD, hypothyroid and anxiety who presents with worsening right arm numbness and tingling. Plan for surgery with Dr. Erickson, hospital medicine consulted for medical management. #Cervical pain/cervical radiculopathy/numbness and tingling - chronic w/ cervical pain, cervical radiculopathy, numbness/tingling of distal extremities ( amrita r. distal fingers) - MRI: Advanced disc degeneration at C3-4 with annular disc bulge flattening the ventral cord with cord edema and causing a critical spinal canal stenosis. There is severe bilateral neuroforaminal stenoses with impingement of the C4 nerve roots. Neurosurgical consult for decompression. Surgical management (pain control, dvt proh, etc) per primary surgical team AM labs #Murmur (ROCK border)/pedal edema Echo - normal left ventricle, EF 65-70, no regional wall motion abnormalities. No significant valvular abnormalities. #Lupus On chronic prednisone 20mg - patient reports it has been higher but she has never been able to wean lower. On stress dose steroidsdexamethasone every 8. Hold prednisone #Hyperglycemia No hx of prediabetes or diabetes, but on chronic steroids. A1c 5.9 Phamracy glycemic consult with stress dose steroids #hx of gastric bypass - noted, avoid NSAIDs #GERD, continue famotidine, Flonase #idiopathic urticaria, continue montelukast #COPD, continue Breo Ellipta #hypothyroidism, continue levothyroxine #anxiety, continue Klonopin Thank you for allowing us to participate in the care of this patient, please reach out with any questions or concerns. Hospital medicine will continue to follow. Admission and Anticipated Discharge Date Admission Date: February 07, 2025 Supervising Physician Co-Signing Physician Notes Attending Attestation - Chart reviewed, care plan d/w BI Dumont. I agree w/ the sigala components of her documentation. Reagan Kellogg MD Subjective Joan was seen in her room postoperatively. Reporting pain in the back of her neck. No stridor present on exam. She does feel like the numbness in her arms has improved. Review of Systems Review of Systems: All systems reviewed & are unremarkable except as noted in Subjective Physical Exam Physical Exam: General: NAD, VS as above Resp: normal respiratory effort, lungs clear to auscultation. No stridor CV: RRR, + murmur, Abd: normal bowel sounds, non tender, no hepatosplenomegaly Extremities: Moves all extremities, SCDs in place Neuro: A&O x3, Skin: intact, no lesions noted Results & Data Results & Data Vital Signs (Past 12 Hours) Vital Signs Temp Pulse Pulse Resp BP Pulse Ox Pulse Ox 02/09/25 14:45 98.1 F 64 17 139/66 94 02/09/25 13:45 97.9 F 66 17 135/67 96 02/09/25 13:19 89 18 94 02/09/25 12:59 94 02/09/25 12:43 75 16 131/70 90 02/09/25 12:18 97.9 F 63 18 146/75 H 92 02/09/25 11:46 93 02/09/25 11:45 98.6 F 65 19 150/72 H 93 02/09/25 11:20 60 15 140/62 93 02/09/25 11:10 57 L 19 138/60 92 02/09/25 11:00 54 L 21 135/60 92 02/09/25 10:50 54 L 12 140/81 92 02/09/25 10:40 54 L 13 149/61 H 92 02/09/25 10:30 97.9 F 53 L 19 134/59 L 93 02/09/25 10:20 52 L 13 138/63 92 02/09/25 10:10 60 20 160/68 H 92 02/09/25 10:00 54 L 14 166/67 H 93 02/09/25 09:50 54 L 17 168/69 H 92 02/09/25 09:40 57 L 19 170/71 H 91 02/09/25 09:30 60 22 186/77 H 90 02/09/25 09:22 98.1 F 67 12 178/93 H 92 02/09/25 07:20 98.1 F 55 L 20 163/74 H 92 O2 Del Method O2 Del Method O2 Flow Rate O2 Flow Rate 02/09/25 14:45 Nasal Cannula 4 02/09/25 13:45 Nasal Cannula 2 02/09/25 13:19 Nasal Cannula 5 02/09/25 12:59 Nasal Cannula 5 02/09/25 12:43 Nasal Cannula 4 02/09/25 12:18 Nasal Cannula 4 02/09/25 11:46 Oxymask 5 02/09/25 11:45 Nasal Cannula 5 02/09/25 11:20 Oxymask 3 02/09/25 11:10 Oxymask 3 02/09/25 11:00 Oxymask 3 02/09/25 10:50 Oxymask 3 02/09/25 10:40 Oxymask 3 02/09/25 10:30 Oxymask 3 02/09/25 10:20 Oxymask 3 02/09/25 10:10 Oxymask 3 02/09/25 10:00 Oxymask 4 02/09/25 09:50 Oxymask 4 02/09/25 09:40 Oxymask 6 02/09/25 09:30 Oxymask 6 02/09/25 09:22 Oxymask 6 02/09/25 07:20 Room Air Laboratory Results CBC and chemistry reviewed PG Care Time/CCT Total # of Minutes Spent Total Time Spent with Patient: Total time spent is greater than 50% in coordination of care (as documented) at patient's floor/unit and/or counseling patient: Coding Level of Care Code 64520 SUB INP/OBS CARE 235MIN Diagnoses Lupus (systemic lupus erythematosus) M32.9 Systemic lupus erythematosus organ involvement: unspecified Systemic lupus erythematosus type: unspecified Cervical cord compression with myelopathy G95.20 Cervical radiculopathy M54.12 Aortic calcification I70.0 Severe chronic obstructive pulmonary disease J44.9 (1) Lupus (systemic lupus erythematosus) Systemic lupus erythematosus organ involvement: unspecified Systemic lupus erythematosus type: unspecified Qualified Code(s): M32.9 - Systemic lupus erythematosus, unspecified
[2025-02-09] MEDS: DOCUSATE SODIUM/SENNA 50/8.6MG TAB PO SCH (20:23)
[2025-02-09] MEDS ORDERED: LANTUS PER UNIT CHARGE SC SCH (21:00)
[2025-02-10] MEDS: INSULIN ASPART PER UNIT CHARGE SC SCH (01:08)
[2025-02-10] MEDS: ACETAMINOPHEN 500 MG TAB PO PRN (01:15)
[2025-02-10] MEDS: POLYETHYLENE (MIRALAX) 17 GM PACK PO SCH (06:24)
[2025-02-10 07:09] LABS: Hematocrit (blood only) 37.6 % (37.0-47.0); Hemoglobin 12.2 g/dl (12.0-16.0); Immature Granulocytes # (auto) 0.08 K/uL (0.01-0.20); Immature Granulocytes % (auto) 0.6 %; Mean Corpuscular Hemoglobin 31.3 pg (25.0-34.0); Mean Corpuscular Volume 96.4 fL (80.0-100.0); Platelet Count 212 K/uL (130-400); RDW Standard Deviation 56.5 fL (36.4-46.3); Red Blood Count 3.90 M/uL (4.20-5.40); White Blood Count 13.64 K/ul (4.8-10.8)
[2025-02-10 07:33] LABS: Anion Gap 7.0 (3-11); Blood Urea Nitrogen 12.0 mg/dl (6-23); Calcium 9.4 mg/dl (8.6-10.3); Carbon Dioxide 28.0 mmol/L (21-32); Chloride 104.0 mmol/L (98-107); Creatinine Clr Calc Pharmacy 117.9 ml/min; Glucose 156.0 mg/dl (70-99(Fasting)); Magnesium 2.4 mg/dl (1.7-2.4); Potassium 4.0 mmol/L (3.5-5.1); Sodium 139.0 mmol/L (136-145)
[2025-02-10] MEDS: LANTUS PER UNIT CHARGE SC SCH (08:57)
--- NOTE | 2025-02-10 10:25 | Discharge Summary ---
Date of Service February 10, 2025 Admission HPI Per Admitting Provider This is a 64-year-old female well-known to this presents with a marked decline in status. She is now falling secondary to balance issues involving lower extremities. She is noting dense numbness and coordination deficits in the right upper extremity compared to the left. This has been progressive in nature over the past several months. Principal Diagnosis Cervical spondylosis with myeloradiculopathy Discharge Data Allergies Allergy/AdvReac Type Severity Reaction Status Date / Time cefaclor Allergy Severe Dyspnea, Verified 02/09/25 07:47 redness cephalexin [From Keflex] Allergy Intermediate Pruritus, Verified 02/09/25 07:47 redness Cephalosporins Allergy Intermediate Pruritus Verified 02/09/25 07:47 (Keflex), Dyspnea (Cefaclor) latex Allergy Intermediate Contact Verified 02/09/25 07:47 dermatitis metoclopramide Allergy Intermediate Tachycardia Verified 02/09/25 07:47 nickel Allergy Contact Verified 02/09/25 07:47 dermatitis pravastatin AdvReac Intermediate Verified 02/09/25 07:47 Consultations 02/07/25 18:47 ED Decision to Admit Stat 02/07/25 21:34 Consult Internal Medicine Routine Procedures Performed Operation Date: 02/09/25 07:45 Actual Procedures p C3-C4 Anterior Cervical Discectomy Fusion(Not Applicable) - Stewart Erickson, Ordered Studies 02/07/25 18:47 MRI Neck [MR cervical spine wo con] Stat 02/09/25 07:45 FL cervical 2-3V Routine Hospital Course (1) Cervical cord compression with myelopathy: Patient was admitted with marked decline in functional status. Updated imaging demonstrated continued cord compression with myelomalacia. Subsequently she underwent urgent anterior cervical discectomy and fusion C3-C4. She tolerated this well was taken to orthopedic for postoperative. Postop day #1 her symptoms were improving. She notes coordination improvement in her hands as well as numbness resolving. Swallowing well. No hoarseness. Improved strength testing. Simply discharged home. Discharge orders instructions from the chart for further review. Total Time Total Time Spent Total Time Spent (In Minutes): 20 minutes Discharge Plan Discharge Items Patient Disposition: Home - Self-Care Reason For Visit: CERVICAL MYELOPATHY Discharge Diagnosis: Cervical myelopathy Condition on Discharge: Fair Activity: As commented below Non-emergency contact: Primary Care Provider Call non-emergency contact if: you have any medication questions Follow-up/Referrals: Hermann Hatfield DO [Primary Care Provider] - Diet: Regular Addtl Attending Provider Instructions: ACTIVITY RECOMMENDATIONS: SELF CARE INSTRUCTIONS AFTER CERVICAL FUSIONS 1. No smoking. Smoking drastically decreases the chance of a solid fusion. 2. No bending, lifting more than 5 pounds, or twisting (roll like a log when turning in bed). 3. You may shower 3 days after surgery. Thoroughly dry wound. Do not soak in the tub. 4. Cervical collar: Must be worn at all times including sleeping. You may remove the brace only to bath, eat and if you are sitting in a recliner. 5. Please walk as much as you can for exercise. Gradually increase the distance that you walk as your endurance increases. 6. You may return to previous diet. SPECIAL CARE INSTRUCTIONS: VERY IMPORTANT TO READ AND REVIEW A. Do not take any anti-inflammatory medications (i.e. Indocin, Advil, Aspirin, Naprosyn, Aleve, Motrin, etc.) as these may inhibit the chance of a solid fusion. Tylenol is okay to take. B. Your surgical incision has been closed with a cosmetic suture under the skin that will dissolve in about 6 weeks. In 14 days, you can use a pair of clean scissors and cut the suture that is left outside of the skin at the ends of your incision. C. Complications are uncommon, but please contact us if you have any signs or symptoms of: 1. wound infection (fever higher than 102.5 degrees F, redness, separation of wound, drainage, or increasing pain from the incision) 2. blood clots in legs (pain, swelling, redness and warmth in legs) 3. urinary tract infection (fever higher than 102.5 degrees, burning upon urination or increased frequency of urination) 4. nerve problems (inability to walk on your toes or heels, numbness, loss of bowel or bladder control) 5. any other symptoms that concern you. D. Please call the office at if you have any concerns or questions about your operation or recovery. MANAGING PAIN AFTER SPINAL SURGERY 1. Narcotic medication is intended for short-term use and will be provided for surgical pain. Surgical pain usually lasts for a period of 4-6 weeks. Narcotic medication includes Percocet, Vicodin, Darvocet, Tylenol #3 or Lortab. 2. Longer-term pain is more appropriately treated with non-narcotic medication such as Tylenol ES. 3. Muscle spasm is not appropriately treated with narcotics. Muscle relaxers such as Soma, Flexeril or Skelaxin can be used along with Tylenol ES. 4. Remember that we all live with some "aches and pains". This is not unusual or uncommon after an injury or as we get older. 5. We will provide appropriate medication within the normal guidelines of their prescribed use. We will also be very cautious and aware of potential abuse and extended duration of patients' medication needs. 6. Please allow 2-3 days to process refills. Prescriptions will not be mailed but must be picked up at the office. FOLLOW UP VISIT: Keep your scheduled follow-up appointment. Any questions, please call the office at . Pending Studies at Discharge: No Stand-Alone Forms: My [facility] [employer], Smoking Cessation Medications and DC Order Prescriptions: New tramadol 50 mg tablet 50 mg PO Q6H PRN (Reason: pain, moderate) Qty: 30 0RF oxycodone 5 mg tablet 5 mg PO Q6H PRN (Reason: pain) Qty: 30 0RF Continued epinephrine [EpiPen 2-Brandon] 0.3 mg/0.3 mL auto-injector 0.3 mg IM Q10M PRN (Reason: anaphylaxis) Qty: 2 0RF Rx Instructions: for 2 doses albuterol sulfate 90 mcg/actuation HFA aerosol inhaler 2 puff inhalation Q6H PRN (Reason: shortness of breath or wheezing) Qty: 18 5RF (DME) CPAP Machine Misc See Rx Instructions .ROUTE .MEDSUPPLY Qty: 1 0RF Rx Instructions: As directed (DME) CPAP Supplies Misc See Rx Instructions .Route Qty: 1 0RF Rx Instructions: CPAP mask, tubing, filters, humidification chamber, headgear. fluticasone furoate-vilanterol [Breo Ellipta] 100-25 mcg/dose blister with device 1 inh inhalation QAM Qty: 60 5RF (DME) BD Luer-Vee Syringe 3 mL 25 x 5/8" syringe See Rx Instructions .Route Qty: 100 1RF Rx Instructions: As directed montelukast 10 mg tablet See Rx Instructions .ROUTE .COMPLEX Qty: 90 3RF Dose Instruction: TAKE 1 TABLET BY MOUTH DAILY Rx Instructions: TAKE 1 TABLET BY MOUTH DAILY methocarbamol 500 mg tablet 500 mg PO QID PRN (Reason: cervical disc disease) Qty: 120 0RF prednisone 10 mg tablet See Rx Instructions .ROUTE .COMPLEX Qty: 60 4RF Dose Instruction: TAKE 2 TABLETS BY MOUTH EVERY DAY Rx Instructions: TAKE 2 TABLETS BY MOUTH EVERY DAY dapsone 100 mg tablet See Rx Instructions .ROUTE .COMPLEX Qty: 90 3RF Dose Instruction: TAKE 1 TABLET BY MOUTH EVERY DAY AT BEDTIME Rx Instructions: TAKE 1 TABLET BY MOUTH EVERY DAY AT BEDTIME cholecalciferol (vitamin D3) 25 mcg/drop ( 1,000 unit/drop) drops 100 mcg PO QAM famotidine 40 mg tablet 40 mg PO QAM Qty: 90 1RF cyanocobalamin (vitamin B-12) 1,000 mcg/mL solution 1,000 mcg IM MONTHLY Qty: 1 5RF clonazepam 0.5 mg tablet 0.5 mg PO TID Qty: 90 0RF hydrocodone-acetaminophen 10-325 mg tablet 1 tab PO Q6H Qty: 120 0RF azelastine 137 mcg (0.1 %) spray,non-aerosol 2 spray intranasal BID PRN (Reason: Congestion) Qty: 30 5RF Rx Instructions: 2 sprays intranasal twice a day PRN; iron infusion 1 dose IV UD Patient Comments: none since prior to 10/2024 gabapentin 100 mg capsule 100 mg PO .COMPLEX Qty: 90 2RF Rx Instructions: take 100mg at hs for one week then increase to 200mg hs for one week then go up to 300mg hs; furosemide [Lasix] 20 mg tablet 20 mg PO DAILY PRN (Reason: leg swelling) cetirizine 10 mg tablet 10 mg PO QAM fluticasone propionate 50 mcg/actuation spray,suspension 2 sprays intranasal HS multivitamin Tablet 1 tab PO QPM levothyroxine [Synthroid] 25 mcg tablet 25 mcg PO QAM Discharge Orders: Discharge Order (Routine); Ordered 02/10/25 Ordered By: Stewart Sewell/Other Patient Handouts: Prediabetes, 5 Steps for Eating Healthier Admission Data Admit Date/Time: 02/07/25 19:10 Attending Provider: Stewart Erickson Admit Provider: Stewart Erickson Primary Care Provider: Hermann Hatfield Other Providers: Stewart Erickson; Nicolle Estrella
--- NOTE | 2025-02-10 16:49 | Hospitalist Progress Note ---
Date of Service February 10, 2025 Assessment & Plan (1) Lupus (systemic lupus erythematosus): (2) Cervical cord compression with myelopathy: (3) Cervical radiculopathy: (4) Aortic calcification: (5) Severe chronic obstructive pulmonary disease: Plan Joan is a 64F with a PMHx of cervical pain, lupus (on chronic steroids), COPD, hypothyroid and anxiety who presents with worsening right arm numbness and tingling. Plan for surgery with Dr. Erickson, hospital medicine consulted for medical management. #Cervical pain/cervical radiculopathy/numbness and tingling - chronic w/ cervical pain, cervical radiculopathy, numbness/tingling of distal extremities ( amrita r. distal fingers) - MRI: Advanced disc degeneration at C3-4 with annular disc bulge flattening the ventral cord with cord edema and causing a critical spinal canal stenosis. There is severe bilateral neuroforaminal stenoses with impingement of the C4 nerve roots. Neurosurgical consult for decompression. Surgical management (pain control, dvt proh, etc) per primary surgical team mild leukocytosis from steroids, no anemia #Murmur (ROCK border)/pedal edema Echo - normal left ventricle, EF 65-70, no regional wall motion abnormalities. No significant valvular abnormalities. #Lupus On chronic prednisone 20mg - patient reports it has been higher but she has never been able to wean lower. Received stress dose sterioids, BP stable. resume home prednisone dosing in AM #Hyperglycemia No hx of prediabetes or diabetes, but on chronic steroids. A1c 5.9 Phamracy glycemic consult with stress dose steroids #hx of gastric bypass - noted, avoid NSAIDs #GERD, continue famotidine, Flonase #idiopathic urticaria, continue montelukast #COPD, continue Breo Ellipta #hypothyroidism, continue levothyroxine #anxiety, continue Klonopin Thank you for allowing us to participate in the care of this patient, please reach out with any questions or concerns. Hospital medicine will sign off. Admission and Anticipated Discharge Date Admission Date: February 07, 2025 Supervising Physician Co-Signing Physician Notes Attending Attestation - Chart reviewed, care plan d/w BI Dumont. I agree w/ the sigala components of her documentation. Reagan Kellogg MD Subjective patient seen sitting up in bed, at bedside pain is well controlled did have pain in her legs with ambulation Review of Systems Review of Systems: All systems reviewed & are unremarkable except as noted in Subjective Physical Exam Physical Exam: General: NAD, VS as above, neck brace in place Resp: normal respiratory effort, lungs clear to auscultation. CV: RRR, + murmur, Abd: normal bowel sounds, non tender, no hepatosplenomegaly Extremities: Moves all extremities, Results & Data Results & Data Vital Signs (Past 12 Hours) Vital Signs Temp Pulse Pulse Resp BP Pulse Ox O2 Del Method 02/10/25 15:21 97.9 F 67 18 148/75 H 92 Room Air 02/10/25 11:07 63 17 92 Room Air 02/10/25 10:45 98.2 F 67 17 152/79 H 93 Room Air 02/10/25 08:46 98.2 F 60 18 137/75 98 Room Air 02/10/25 07:41 Room Air 02/10/25 07:16 56 L 16 97 Room Air 02/10/25 06:16 97.9 F 56 L 16 165/75 H 93 Room Air FiO2 02/10/25 15:21 02/10/25 11:07 21 02/10/25 10:45 02/10/25 08:46 02/10/25 07:41 02/10/25 07:16 02/10/25 06:16 Laboratory Results cbc and chemistry reviewed PG Care Time/CCT Total # of Minutes Spent Total Time Spent with Patient: Total time spent is greater than 50% in coordination of care (as documented) at patient's floor/unit and/or counseling patient: Coding Level of Care Code 94662 SUB INP/OBS CARE 2/35MIN Diagnoses Lupus (systemic lupus erythematosus) M32.9 Systemic lupus erythematosus organ involvement: unspecified Systemic lupus erythematosus type: unspecified Cervical cord compression with myelopathy G95.20 Cervical radiculopathy M54.12 Aortic calcification I70.0 Severe chronic obstructive pulmonary disease J44.9 (1) Lupus (systemic lupus erythematosus) Systemic lupus erythematosus organ involvement: unspecified Systemic lupus erythematosus type: unspecified Qualified Code(s): M32.9 - Systemic lupus erythematosus, unspecified
[2025-02-10] MEDS: OXYMETAZOLINE 0.05% 30 ML BTL NAE ONE (18:01)
--- NOTE | 2025-02-11 08:55 | Orthopedic Progress Note ---
Date of Service February 11, 2025 Assessment & Plan (1) Cervical cord compression with myelopathy: Plan: Patient very much would like to return home. She is able to remain on 1 floor. This is reasonable. Will discharge her today follow-up as scheduled. Admission and Anticipated Discharge Date Admission Date: February 07, 2025 Subjective Patient feeling much improved today. Swallowing well. Arm symptoms improved. Ambulating improved. Strength and returning home. Physical Exam Physical Exam: Patient sitting up at bedside. She is alert and oriented. Distracted testing. Results & Data Vital Signs (Past 12 Hours) Vital Signs Temp Pulse Pulse Resp BP BP Pulse Ox 02/11/25 07:40 36.8 C 56 L 20 163/64 H 92 02/11/25 04:26 36.5 C 63 16 155/73 H 92 02/10/25 22:53 36.7 C 53 L 18 132/71 92 02/10/25 20:56 02/10/25 20:56 Pulse Ox O2 Del Method O2 Del Method 02/11/25 07:40 Room Air 02/11/25 04:26 Room Air 02/10/25 22:53 Room Air 02/10/25 20:56 92 Room Air 02/10/25 20:56 Room Air
[2025-02-11 12:25] VITALS: BP 155/77; PULSE 74; RESP 18; TEMP 98.1; O2SAT 90
== END 2025-02-11 14:27 | disposition home health service (06) | DRG 473 ==
LOC: ED 15:06 → 3N 19:10